=== PATIENT | female | born 1955 | race Caucasian/White ===

== ENCOUNTER → 2024-03-10 17:21 | Outpatient (CLI) | payer MEDICARE, OTHER, SELFPAY ==
[2024-03-10 18:04] LABS: Add Manual Diff / Slide Review NO; Basophils Absolute Auto 0 /uL (0-100); Basophils Percent Auto 0.3 % (0-2); Eosinophils Absolute Auto 0 /uL (0-450); Eosinophils Percent Auto 0.1 % (2-4); Hematocrit 42.6 % (36-46); Hemoglobin 14.5 g/dL (12.0-16.0); Lymphocytes Absolute Auto 2200 /uL (1100-4500); Lymphocytes Percent Auto 21.5 % (25-40); Mean Corpuscular HGB Conc 34.1 % (30-36); Mean Corpuscular Hemoglobin 29.1 PG (26-34); Mean Corpuscular Volume 85.3 fL (80-100); Monocytes Absolute Auto 200 /uL (0-900); Monocytes Percent Auto 1.6 % (3-14); Neutrophils Absolute Auto 7700 /uL (1500-7000); Neutrophils Percent Auto 76.5 % (50-75); Platelet Count 352 X10^3/uL (150-400); Red Blood Cell Count 4.99 X10^6/uL (4.0-5.2); Red Cell Distribution Width 15.2 % (11.6-14.8); White Blood Cell Count 10.1 X10^3/uL (4.5-11.0)
[2024-03-10 18:28] LABS: Alanine Aminotransferase 46 IU/L (<35); Albumin 4.8 g/dL (3.5-5.0); Albumin Globulin Ratio 1.6 (1.0-2.8); Alkaline Phosphatase 107 U/L (38-126); Aspartate Aminotransferase 33 IU/L (14-36); BUN Creatinine Ratio 26.2 (6-22); Bilirubin Total 0.9 mg/dL (0.2-1.3); Blood Urea Nitrogen 17 mg/dL (7-17); Calcium 11.4 mg/dL (8.4-10.2); Carbon Dioxide 27 mmol/L (22-32); Chloride 102 mmol/L (98-107); Estimated Glomerular Filt Rate > 60 mL/min (>60); Glucose 120 mg/dL (80-110); HEMOLYSIS < 15 (0-50); Potassium 4.2 mmol/L (3.4-5.1); Sodium 138 mmol/L (137-145); Total Protein 7.8 g/dL (6.3-8.2)
[2024-03-10 18:33] LABS: Rheumatoid Factor < 8.6 IU/mL (<12.0)
== END ==
PROVIDERS: Referring Provider Ophthalmology; Visit Provider Ophthalmology
DX: H30.23 Posterior cyclitis, bilateral (principal)
CPT/HCPCS: 36415; 80053; 81374; 82164; 85025; 85549; 86038; 86430; 86480; 86592

== ENCOUNTER → 2024-03-29 13:41 | Outpatient (CLI) | payer MEDICARE, OTHER, SELFPAY | PROVIDERS: PCP Family Medicine; Referring Provider Internal Medicine; Visit Provider Internal Medicine | DX: R91.1 Solitary pulmonary nodule (principal); F17.210 Nicotine dependence, cigarettes, uncomplicated; J98.4 Other disorders of lung | CPT/HCPCS: 94060; 94726; 94729 ==

== ENCOUNTER → 2024-04-01 12:48 | Outpatient (CLI) | payer MEDICARE, OTHER, SELFPAY ==
--- NOTE | 2024-04-01 12:49 | DI.MRI.S_ITS ---
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 After the administration of contrast, axial and coronal and sagittal T1 spin echo with fat saturation through the brain. COMPARISON: None. FINDINGS: Image quality: Excellent. CSF spaces: Basal cisterns are patent. No extra-axial fluid collections. Ventricles are normal in size and shape. Brain: Brain parenchymal volume loss can be seen. Numerous foci of T2 weighted hyperintensity can be seen within the periventricular deep white matter. A few peripheral white matter lesions are also seen. No involvement of the corpus callosum can be seen. Poorly defined wispy T2 hyperintense lesions can be seen within the central james. No midline shift. No intracranial bleeds or masses. No abnormal intracranial enhancement. The brainstem appears normal. Diffusion-weighted images demonstrate no acute infarct. No chronic ischemic insults. Normal intravascular flow voids are present. Symmetric calcification can be seen involving the basal ganglia, which is considered to be normal for age. Skull and face: In this patient with this given history, scrutiny is given to the orbits. To the limits of this standard protocol study, no findings of masses or abnormal enhancement can be seen with globes are within the orbits. Calvarial marrow is normal in signal. Sinuses: Sinuses and mastoids appear clear. IMPRESSION: No masses or abnormal enhancement can be seen involving the globes or the orbits. No masses or abnormal enhancement can be seen elsewhere. The brain findings are most compatible with age-appropriate brain parenchymal volume loss and chronic small vessel ischemic change. No findings of acute or subacute infarction can be seen. No prior territorial infarct can be seen. Dictated by: Patrice Saldana M.D. on 04/01/2024 at 13:55 Approved by: Patrice Saldana M.D. on 04/01/2024 at 13:58
== END ==
PROVIDERS: PCP Family Medicine; Referring Provider Internal Medicine; Visit Provider Internal Medicine
DX: C34.90 Malignant neoplasm of unspecified part of unspecified bronchus or lung (principal); R91.8 Other nonspecific abnormal finding of lung field; H20.9 Unspecified iridocyclitis
CPT/HCPCS: 70553; A9579

== ENCOUNTER → 2024-04-20 15:51 | Outpatient (CLI) | payer MEDICARE, OTHER, SELFPAY ==
[2024-04-20 16:53] LABS: Hemoglobin A1C% w Est Avg Glu 5.8 % (4.0-6.0)
[2024-04-20 17:08] LABS: BUN Creatinine Ratio 27.3 (6-22); Blood Urea Nitrogen 18 mg/dL (7-17); Calcium 10.1 mg/dL (8.4-10.2); Carbon Dioxide 31 mmol/L (22-32); Chloride 100 mmol/L (98-107); Estimated Glomerular Filt Rate > 60 mL/min (>60); Glucose 94 mg/dL (80-110); HEMOLYSIS 29 (0-50); Sodium 136 mmol/L (137-145)
[2024-04-20 17:14] LABS: Vitamin D 25 Hydroxy (D3) 31.7 ng/mL (30.0-100.0)
== END ==
PROVIDERS: PCP Family Medicine; Referring Provider Family Medicine; Visit Provider Family Medicine
DX: R73.9 Hyperglycemia, unspecified (principal); E83.52 Hypercalcemia; C34.90 Malignant neoplasm of unspecified part of unspecified bronchus or lung; H20.9 Unspecified iridocyclitis
CPT/HCPCS: 36415; 80048; 82306; 82330; 83036; 83883; 83970; 84155; 84165

== ENCOUNTER → 2024-06-17 12:32 | Outpatient (CLI) | payer MEDICARE, OTHER, SELFPAY ==
[2024-06-17 13:18] LABS: Hematocrit 40.6 % (36-46); Hemoglobin 13.7 g/dL (12.0-16.0); Mean Corpuscular HGB Conc 33.8 % (30-36); Mean Corpuscular Volume 85.7 fL (80-100); Platelet Count 321 X10^3/uL (150-400); Red Blood Cell Count 4.73 X10^6/uL (4.0-5.2); Red Cell Distribution Width 15.2 % (11.6-14.8); White Blood Cell Count 12.3 X10^3/uL (4.5-11.0)
[2024-06-17 13:34] LABS: Prothrombin Time 10.9 SECONDS (9.4-12.5)
== END ==
PROVIDERS: PCP Family Medicine; Referring Provider Internal Medicine; Visit Provider Internal Medicine
DX: D86.0 Sarcoidosis of lung (principal); R91.8 Other nonspecific abnormal finding of lung field
CPT/HCPCS: 36415; 85027; 85610

== ENCOUNTER → 2024-07-04 12:37 | Outpatient (CLI) | payer MEDICARE, OTHER, SELFPAY ==
[2024-07-04 14:07] LABS: Add Manual Diff / Slide Review NO; Basophils Absolute Auto 100 /uL (0-100); Basophils Percent Auto 0.5 % (0-2); Eosinophils Absolute Auto 100 /uL (0-450); Eosinophils Percent Auto 0.5 % (2-4); Hematocrit 40.8 % (36-46); Hemoglobin 13.6 g/dL (12.0-16.0); Lymphocytes Absolute Auto 2900 /uL (1100-4500); Lymphocytes Percent Auto 21.2 % (25-40); Mean Corpuscular HGB Conc 33.3 % (30-36); Mean Corpuscular Hemoglobin 28.5 PG (26-34); Mean Corpuscular Volume 85.5 fL (80-100); Monocytes Absolute Auto 900 /uL (0-900); Monocytes Percent Auto 6.8 % (3-14); Neutrophils Absolute Auto 9800 /uL (1500-7000); Platelet Count 297 X10^3/uL (150-400); Red Blood Cell Count 4.78 X10^6/uL (4.0-5.2); Red Cell Distribution Width 15.4 % (11.6-14.8); White Blood Cell Count 13.7 X10^3/uL (4.5-11.0)
[2024-07-04 14:48] LABS: INR 0.9 (0.9-1.3); Prothrombin Time 10.1 SECONDS (9.4-12.5)
== END ==
PROVIDERS: PCP Family Medicine; Referring Provider Internal Medicine; Visit Provider Internal Medicine
DX: Z01.818 Encounter for other preprocedural examination (principal); R91.8 Other nonspecific abnormal finding of lung field
CPT/HCPCS: 36415; 85025; 85610

== ENCOUNTER → 2024-07-28 17:28 | Outpatient (CLI) | payer MEDICARE, OTHER, SELFPAY ==
--- NOTE | 2024-07-28 17:30 | DI.RAD.S_ITS ---
PROCEDURE: XR CHEST 2V INDICATIONS: recent lung bx, ro pneumothorax TECHNIQUE: 2 views of the chest were acquired. COMPARISON: [facility], CR, XR CHEST 1 VIEW, 07/07/2024, 11:17. FINDINGS: Surgical changes and devices: None. Lungs and pleura: Radiodensity involving left apex is seen unchanged from prior study. No pleural effusions or pneumothorax. Mediastinum: Mediastinal contours are normal. Heart size is normal. Bones and chest wall: No suspicious bony abnormalities. Soft tissues appear unremarkable. IMPRESSION: Stable left upper lobe radiopacity. No pneumothorax post recent lung biopsy. Dictated by: Ricardo Rutledge M.D. on 07/28/2024 at 21:04 Approved by: Ricardo Rutledge M.D. on 07/28/2024 at 21:06
== END ==
PROVIDERS: PCP Family Medicine; Referring Provider Internal Medicine; Visit Provider Internal Medicine
DX: D86.0 Sarcoidosis of lung (principal); H20.9 Unspecified iridocyclitis; R91.8 Other nonspecific abnormal finding of lung field; C79.9 Secondary malignant neoplasm of unspecified site; R06.02 Shortness of breath
CPT/HCPCS: 71046

== ENCOUNTER → 2024-08-22 11:32 | Outpatient (CLI) | payer MEDICARE, OTHER, SELFPAY ==
--- NOTE | 2024-08-22 11:34 | DI.MG.S_ITS ---
BILATERAL DIGITAL SCREENING MAMMOGRAM 3D/2D WITH CAD: 08/22/2024 CLINICAL: Routine screening. No prior exams were available for comparison. There are scattered areas of fibroglandular density (category b / 25%-50% glandular tissue). Current study was also evaluated with a Computer Aided Detection (CAD) system. No significant masses, calcifications, or other findings are seen in either breast. IMPRESSION: NEGATIVE There is no mammographic evidence of malignancy. A 1 year screening mammogram is recommended. Based on the Tyrer Cuzick model (a risk assessment model) the patient's lifetime risk is 4.8% and her 10 year risk is 2.8%. According to the ACR, ACS, and NCCN guidelines, an annual breast MRI exam along with mammogram is recommended if the patient's lifetime risk is 20% or greater. This exam was interpreted at Station ID: [id number]. NOTE: For mammograms, a report in lay terms will be sent to the patient. Approximately 15% of breast malignancies will not be visualized mammographically. In the management of a palpable breast mass, a negative mammogram must not discourage biopsy of a clinically suspicious lesion. Electronically Signed By: Mello vargas/román:08/22/2024 18:39:37 letter sent: Normal Exam ACR BI-RADS Category 1: Negative
[2024-08-22 15:22] LABS: Hemoglobin A1C% w Est Avg Glu 5.8 % (4.0-6.0)
== END ==
PROVIDERS: PCP Family Medicine; Referring Provider Family Medicine; Visit Provider Family Medicine
DX: Z12.31 Encounter for screening mammogram for malignant neoplasm of breast (principal); R73.01 Impaired fasting glucose
CPT/HCPCS: 36415; 77063; 77067; 83036

== ENCOUNTER → 2024-09-06 11:42 | Outpatient (CLI) | payer MEDICARE, OTHER, SELFPAY ==
--- NOTE | 2024-09-06 11:45 | DI.CT.S_ITS ---
PROCEDURE: CT SOFT TISSUE NECK W CON INDICATIONS: Swelling in Neck TECHNIQUE: After the administration of intravenous contrast, 3.0 mm axial sections acquired from the sella to the aortic arch. Additional oblique axial 3.0 mm sections acquired through the pharynx. 3 mm thick coronal and sagittal reformats were generated. For radiation dose reduction, the following was used: automated exposure control. COMPARISON: [facility], RG, CT THORAX WITH CONTRAST, 03/04/2024, 17:46. [facility], MR, MR HEAD/BRAIN WO/W CON, 04/01/2024, 13:57. FINDINGS: Image quality: Excellent. Lymph nodes: No enlarged lymph nodes seen throughout the neck. Vessels: Visualized vasculature appears patent. Atherosclerotic vascular calcifications. Neck spaces: The oropharynx, nasopharynx, and pharynx demonstrate no mucosal lesions. The vocal cords, false vocal cords, pyriform sinuses, epiglottis, vallecula, and tongue base all appear normal. Extramucosal spaces appear unremarkable. Glands: The parotid and submandibular glands appear normal. Thyroid gland is heterogeneous and enlarged with multiple nodules, greater on the left. Miscellaneous: Lesion within the inferior right cerebellar hemisphere with enhancement measuring 1.1 centimeters (2/8).. Left upper lobe mass is increased in size measuring 4.6 x 2.6 centimeters, previously 2.9 x 3.1 centimeters, with spiculated margins. Additional right upper lobe nodule with adjacent ground-glass and consolidative opacity measuring 1.8 centimeters is mildly increased compared to prior. Left anterior mediastinal lymph node is partially visualized measuring 3.0 x 1.4 centimeters, previously 1.8 x 0.9 centimeters. Superficial soft tissues appear normal. Bones: No suspicious bony lesions. Multilevel degenerative changes of the spine. Visualized sinuses and mastoids appear unremarkable. IMPRESSION: 1. Left upper lobe mass is increased in size compared to prior measuring up 4.6 centimeters, previously 3.1 centimeters. Despite negative biopsy result, findings are suspicious for malignancy. 2. Right apical nodule is also mildly increased in size with adjacent ground-glass and consolidation. 3. No enlarged lymph nodes are seen within the neck. 4. Heterogeneous enlarged thyroid with multiple nodules, correlate with prior thyroid ultrasounds. Dictated by: Babar Farias M.D. on 09/06/2024 at 14:41 Approved by: Babar Farias M.D. on 09/06/2024 at 14:53
[2024-09-06 12:15] LABS: Estimated Glomerular Filt Rate > 60 mL/min (>60)
== END ==
LOC: CT 11:43
PROVIDERS: Radiology Diagnostic Radiology; PCP Family Medicine; Referring Provider Internal Medicine; Visit Provider Internal Medicine
DX: G93.9 Disorder of brain, unspecified (principal); R22.1 Localized swelling, mass and lump, neck; E04.2 Nontoxic multinodular goiter
CPT/HCPCS: 36415; 70491; 82565; Q9967

== ENCOUNTER 2025-02-05 18:43 | Emergency (ER) | payer MEDICARE, OTHER, SELFPAY ==
[2025-02-05] VITALS (12 sets, daily range): BP systolic 123–149; BP diastolic 58–74; PULSE 79–104; RESP 11–48; TEMP 36.6–36.8; O2SAT 92–99; BMI 29.2
--- NOTE | 2025-02-05 19:01 | DI.RAD.S_ITS ---
PROCEDURE: XR CHEST 1V INDICATIONS: Shortness of breath TECHNIQUE: One view of the chest was acquired. COMPARISON: [facility], CR, XR CHEST 2V, 07/28/2024, 17:32. FINDINGS: Surgical changes and devices: Left subclavian MediPort in place. Overlying monitoring wires. Lungs and pleura: Low lung volumes. Interval decrease in size of spiculated left apical and left mid lung density. No focal consolidation, effusion, or pneumothorax. Mediastinum: Mediastinal contours appear normal. Heart size is normal. Bones and chest wall: No suspicious bony lesions. Overlying soft tissues appear unremarkable. IMPRESSION: Hypoinflation. Decreasing left lung opacities. No acute cardiopulmonary disease. Dictated by: Tona Fisher M.D. on 02/05/2025 at 19:34 Approved by: Tona Fisher M.D. on 02/05/2025 at 19:36
--- NOTE | 2025-02-05 19:01 | EKG_ITS ---
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
[2025-02-05 19:15] LABS: Hematocrit 33.4 % (36-46); Hemoglobin 11.3 g/dL (12.0-16.0); Mean Corpuscular Hemoglobin 30.3 PG (26-34); Mean Corpuscular Volume 89.1 fL (80-100); Platelet Count 182 X10^3/uL (150-400); Red Blood Cell Count 3.74 X10^6/uL (4.0-5.2); Red Cell Distribution Width 18.7 % (11.6-14.8); White Blood Cell Count 16.1 X10^3/uL (4.5-11.0)
[2025-02-05 19:16] LABS: INR 1.3 (0.9-1.3); Prothrombin Time 14.8 SECONDS (9.4-12.5)
[2025-02-05 19:17] LABS: Add Manual Diff / Slide Review YES
[2025-02-05 19:19] LABS: Lactate (Lactic Acid) 1.9 mmol/L (0.7-2.1)
[2025-02-05 19:20] LABS: Alanine Aminotransferase 123 IU/L (<35); Albumin 4.1 g/dL (3.5-5.0); Albumin Globulin Ratio 1.6 (1.0-2.8); Alkaline Phosphatase 173 U/L (38-126); Aspartate Aminotransferase 59 IU/L (14-36); BUN Creatinine Ratio 26.8 (6-22); Bilirubin Total 1.1 mg/dL (0.2-1.3); Blood Urea Nitrogen 19 mg/dL (7-17); Calcium 10.1 mg/dL (8.4-10.2); Carbon Dioxide 24 mmol/L (22-32); Chloride 99 mmol/L (98-107); Estimated Glomerular Filt Rate > 60 mL/min (>60); Globulin 2.5 g/dL (1.7-4.1); Glucose 116 mg/dL (80-110); HEMOLYSIS < 15 (0-50); Potassium 3.2 mmol/L (3.4-5.1); Sodium 133 mmol/L (137-145); Total Protein 6.6 g/dL (6.3-8.2)
[2025-02-05 19:32] LABS: NT-proBNP (BNP-Adult 18+) 69 pg/mL (<125); Troponin I < 0.012 ng/mL (0.01-0.034)
[2025-02-05 19:36] LABS: Anisocytosis 1+; Neutrophils Absolute Manual 13846 /uL (3000-5900); Nucleated Red Blood Cells 1 #/Diff; Total Cells Counted 100
--- NOTE | 2025-02-05 20:56 | ED.SOB ---
HPI - SOB/Dyspnea General Chief Complaint: Shortness of Breath/Dyspnea Stated Complaint: SOB x1 day Time Seen by Provider: 02/05/25 20:56 Source: patient, EMS, RN notes reviewed and old records reviewed Mode of arrival: EMS Limitations: no limitations History of Present Illness HPI Narrative: 29-year-old female with a history of lung cancer on active chemo and radiation and right lung lobectomy, pulmonary embolism currently on Eliquis, hypertension on daily prednisone 2.5 mg who presents with complaint increasing shortness of breath particularly over the past 2 days. Patient states she does okay at rest but when she exerts herself she gets really short of breath we will take about 30 minutes to improve. Has been sort of progressive over the past day, she was yesterday she got really lightheaded while taking a shower she has not had any syncope. Today it has been more frequent she was started to get sort of lightheaded and tingling all over. She denies any chest pain with the symptoms. No fevers. She did have some palpitations where heart felt like it was beating strongly. She denies any cough. No hemoptysis. No new swelling of extremities. She was had some nausea but notes she recently had chemotherapy on Thursday for her 4th round and a shot on Thursday no vomiting. She is got some mild constipation but relates that to her antiemetics. No new urinary symptoms. She does note that her Eliquis was stopped in November because she has a head injury had a small bleed and restarted it 2 weeks ago. She was otherwise been taking her medications regularly. She does not use inhalers states she had reaction to albuterol when she was at [facility] she was not sure exactly what she was given but they called what sounds like a rapid response. She received Versed and Solu-Medrol with EMS which she found very helpful. Has a reported allergy to sulfa. Former tobacco use, no alcohol no recreational drugs. Phyllis is her oncologist at [facility]. Dr. Steiner is her primary care physician. Related Data Home Medications Medication Instructions Recorded Confirmed acetaminophen 500 mg tablet 500 mg PO Q6H PRN 03/16/24 10/25/24 (Tylenol Extra Strength) cholecalciferol (vitamin D3) 25 25 mcg PO DAILY 03/16/24 10/25/24 mcg (1,000 unit) capsule multivitamin 1 tab PO DAILY 03/16/24 10/25/24 vit C 90 mg-D3 3.15 mcg-E 3.35 tab PO 03/16/24 10/25/24 [id number] 65 mg chew tablet (Airborne Vits Zinc Elderberry) prednisolone acetate 1 % eye 1 drp EYE-RIGHT QID 10/25/24 10/25/24 drops,suspension prednisone 10 mg tablet 20 mg PO DAILY 10/25/24 10/25/24 Previous Rx's Medication Instructions Recorded ondansetron 4 mg disintegrating 4 mg translingual Q6H PRN nausea 07/28/24 tablet and vomiting #90 tabs alprazolam 0.25 mg tablet (Xanax) 0.125 mg (1/2 x 0.25 mg) PO 10/25/24 BEDTIME PRN sleep #30 tabs amlodipine 5 mg tablet 5 mg PO DAILY #90 tabs 10/25/24 apixaban 5 mg tablet (Eliquis) 5 mg PO BID Blood clots in lungs 10/25/24 #60 tabs alprazolam 0.25 mg tablet (Xanax) 0.125 mg (1/2 x 0.25 mg) PO BID 02/05/25 PRN anxiety #10 tabs Allergies Allergy/AdvReac Type Severity Reaction Status Date / Time albuterol Allergy Severe Difficulty Verified 02/05/25 18:44 Breathing Sulfa (Sulfonamide AdvReac Rash Verified 02/05/25 18:44 Antibiotics) Review of Systems Review of Systems ROS Unobtainable: All systems reviewed & are unremarkable except as noted in HPI and below Patient History Medical History Pulmonary embolism Localized swelling, mass and lump, neck IFG (impaired fasting glucose) Cataracts, bilateral (~2018) Fibroids (~2008) Thyroid nodule (~2022) Hyperparathyroidism Surgical History Anesthesia S/P thyroid biopsy (~2021) History of left knee surgery (~2018) History of colonoscopy (~2013) History of lobectomy of lung (~2010) History of right knee surgery (~2005) History of carpal tunnel release (~2000) Family History Father Parkinson's disease Mother Parkinson's disease Osteoporosis Uterine cancer Grandfather Cancer Grandmother History of heart disease Grandfather History of heart disease Grandmother History of heart disease Social History Smoking Status: Former smoker Smoking Status: Former smoker Exam Narrative Exam Narrative: GENERAL: Alert and oriented x three, female in moderate distress. Patient had just walked to the bathroom and back. No diaphoresis. HEENT: Head normocephalic, atraumatic, EOMI, pupils reactive, face symmetric, moist mucous membranes NECK: Supple, full range of motion CARDIOVASCULAR: Regular rate and rhythm without murmurs, rubs or gallops. RESPIRATORY: Breath sounds equal bilaterally, no wheezes rales or rhonchi. Patient has tachypnea, no accessory muscle use speaks in 4-5 words. No stridor. ABDOMEN: Soft, nontender. Normoactive bowel sounds all 4 quadrants. No guarding or rebound, rigidity, no mass : No CVA tenderness EXTREMITIES: Normal range of motion, no clubbing or edema. Neurovascularly intact NEUROLOGICAL: Cranial nerves II through XII grossly intact. Moving all extremities SKIN: Warm, dry, no petechiae, no rashes or lesions. Initial Vital Signs Initial Vital Signs: Vital Signs Temperature 98.2 F 02/05/25 18:44 Pulse Rate 82 02/05/25 18:44 Respiratory Rate 16 02/05/25 18:44 Blood Pressure 135/66 02/05/25 18:44 Pulse Oximetry 92 02/05/25 18:44 Oxygen Delivery Method Room Air 02/05/25 18:44 Course Orders Ordered: ED Orders 02/05/25 21:34 EKG-12 Lead Stat 02/05/25 21:40 Trop I [Troponin I] Stat Discontinued Medications Lorazepam (Lorazepam 2 Mg/Ml Inj) 0.5 mg IV NOW ONE Stop: 02/05/25 21:19 Last Admin: 02/05/25 21:44 Dose: 0.5 mg Documented By: DONNELL Potassium Chloride (Potassium Chloride 20 Meq Tab) 40 meq PO NOW ONE Stop: 02/05/25 21:00 Last Admin: 02/05/25 21:11 Dose: 40 meq Documented By: DALLIN Vital Signs Vital signs: Vital Signs - 8 hr 02/05/25 22:30 02/05/25 22:43 02/05/25 23:00 Temperature Pulse Rate 86 104 H 84 Respiratory Rate 19 26 H 14 Blood Pressure Pulse Oximetry 94 93 Oxygen Delivery Method 02/05/25 23:23 Temperature 97.9 F Pulse Rate 88 Respiratory Rate 20 Blood Pressure 149/73 H Pulse Oximetry 94 Oxygen Delivery Method Room Air MDM - SOB/Dyspnea Lab Data 02/05/25 18:43 02/05/25 18:43 Labs: Lab Results 02/05/25 02/05/25 Range/Units 18:43 21:40 WBC 16.1 H (4.5-11.0) X10^3/uL RBC 3.74 L (4.0-5.2) X10^6/uL Hgb 11.3 L (12.0-16.0) g/dL Hct 33.4 L (36-46) % MCV 89.1 (80-100) fL MCH 30.3 (26-34) PG MCHC 34.0 (30-36) % RDW 18.7 H (11.6-14.8) % Plt Count 182 (150-400) X10^3/uL Neut % (Auto) Not Reportable Lymph % (Auto) Not Reportable [place] % (Auto) Not Reportable Eos % (Auto) Not Reportable Baso % (Auto) Not Reportable Lymph # (Auto) Not Reportable [place] # (Auto) Not Reportable Baso # (Auto) Not Reportable Total Counted 100 Seg Neutrophils % 86.0 H (38-70) % Lymphocytes % (Manual) 9.0 L (25-45) % Monocytes % (Manual) 2.0 (2-11) % Eosinophils % (Manual) 3.0 (2-4) % Neutrophils # (Manual) 24658 H (2377-0753) /uL Nucleated RBCs 1 H ( - 0) #/Diff RBC Morphology See below Anisocytosis 1+ H PT 14.8 H (9.4-12.5) SECONDS INR 1.3 (0.9-1.3) Sodium 133 L (137-145) mmol/L Potassium 3.2 L (3.4-5.1) mmol/L Chloride 99 (98-107) mmol/L Carbon Dioxide 24 (22-32) mmol/L BUN 19 H (7-17) mg/dL Creatinine 0.71 (0.52-1.04) mg/dL Estimated GFR > 60 (>60) mL/min BUN/Creatinine Ratio 26.8 H (6-22) Glucose 116 H (80-110) mg/dL Lactate 1.9 (0.7-2.1) mmol/L Calcium 10.1 (8.4-10.2) mg/dL Total Bilirubin 1.1 (0.2-1.3) mg/dL AST 59 H (14-36) IU/L ALT 123 H (<35) IU/L Alkaline Phosphatase 173 H (38-126) U/L Troponin I < 0.012 < 0.012 (0.01-0.034) ng/mL NT-Pro-B Natriuret Pep 69 (<125) pg/mL Total Protein 6.6 (6.3-8.2) g/dL Albumin 4.1 (3.5-5.0) g/dL Globulin 2.5 (1.7-4.1) g/dL Albumin/Globulin Ratio 1.6 (1.0-2.8) ECG Data Attestation: I personally reviewed and interpreted this ECG as follows: Prior ECG tracings: not available for review Interpretation: Sinus rhythm rate 82 [place] 122 QRS of 134 QTC of 450, sinus rhythm right bundle-branch block. No priors for comparison. EKG 2. Shows sinus rhythm right bundle-branch block rate of 90, IL 124 QRS of 126 QTC of 467 no dynamic changes appreciated. [facility] Narrative Medical decision making narrative: Labs show white count of 16.1 was a little elevated in June of 2024 hemoglobin is 11.3 today was 13 range in June, platelets are 182. Patient has predominance of neutrophils. INR is 1.3 sodium is 133 potassium 3.2, BUN 19 with a normal creatinine and glucose of 116 bilirubin is normal AST ALT are slightly elevated at 59 and 123 with a alk-phos of 173 troponins less than 0.012 with a BNP of 69. Repeat troponins less than 0.012. EKG shows sinus rhythm with right bundle-branch block no priors for comparison. Chest x-ray shows hypoinflation decreasing left lung opacities no acute cardiopulmonary disease CTA chest shows no acute pulmonary embolism, previously seen right upper lobe pulmonary embolus has resolved no evidence of acute right-sided heart strain. Stable to decreased size and conspicuity of multiple bilateral irregular spiculated pulmonary nodules and masses no new suspicious or enlarging nodules identified. Patient received 2 mg Versed and 125 mg of Solu-Medrol with EMS, report is that patient did not have DuoNeb but did seem to respond well to Versed. Here in the department patient was seen briefly none it was not tachypneic but after walking back from the bathroom is tachypneic rate in the 40s otherwise heart rate blood pressure and O2 are normal she was afebrile. She does note she has been off of her Eliquis until about 2 weeks ago and has a history of pulmonary embolism so CT angio is felt appropriate to rule out PE versus other structural changes from her known lung cancer, CT imaging does not show any PE does show some changes to the lungs but actually improved from prior. Patient does not appear to be in heart failure, repeat troponins are negative. She was not had any chest pain with her symptoms. Patient received potassium and lorazepam. Ambulatory pulse ox 93-94% patient is not nearly as tachypneic on re-evaluation after the medication and ambulation. She feels comfortable returning home. She does have some Xanax at home that she was taken for sleep we will give her short course of some additional tablets as she states she does not have very many of these. We did discuss having her follow-up she has a Oncology, pulmonology and primary care I think any of these would be a good choice to follow up for repeat evaluation particularly if she was having persistent symptoms or they are worsening. We did discuss cardiac sources on the differential on that she may benefit from cardiac workup. Patient's family expressed their understanding. 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 Your workup today did not show any new accumulation of pulmonary emboli, you have not had any worsening of the structural changes in your lungs your cardiac workup was negative but talk with your physician they may wish to do some additional testing. A prescription for some additional Xanax was sent to your [facility] in [place]. Take it the same as you normally do at home. Please return if you are having new or worsening symptoms, fevers, chest pain, increasing shortness of breath, shortness of breath that does not improve, coughing up blood, lightheadedness or passing out, diaphoresis or sweatiness, vomiting or other new or concerning changes. Prescriptions: New alprazolam [Xanax] 0.25 mg tablet 0.125 mg PO BID PRN (Reason: anxiety) Qty: 10 0RF No Action Eliquis 5 mg tablet 5 mg PO BID Qty: 60 11RF alprazolam [Xanax] 0.25 mg tablet 0.125 mg PO BEDTIME PRN (Reason: sleep) Qty: 30 2RF amlodipine 5 mg tablet 5 mg PO DAILY Qty: 90 3RF prednisone 10 mg tablet 20 mg PO DAILY Rx Instructions: until complete prednisolone acetate 1 % drops,suspension 1 drp EYE-RIGHT QID multivitamin Tablet 1 tab PO DAILY cholecalciferol (vitamin D3) 25 mcg (1,000 unit) capsule 25 mcg PO DAILY Airborne Vits Zinc Elderberry 90 mg-3.15 mcg- 3.35 mg-1 mg tablet,chewable PO acetaminophen [Tylenol Extra Strength] 500 mg tablet 500 mg PO Q6H PRN ondansetron 4 mg tablet,disintegrating 4 mg translingual Q6H PRN (Reason: nausea and vomiting) Qty: 90 0RF Referrals: Kayla Steiner DO [Primary Care Provider] - Stand Alone Forms: Patient Portal/API/Survey
--- NOTE | 2025-02-05 21:06 | PC.NURSE ---
Pt became dyspneic after ambulating to BR. States this started happening yesterday, worse today. States it takes 30 mins to recover from short exertion. Lungs CTA. Dr Newton now at bedside.
[2025-02-05] MEDS: POTASSIUM CHLORIDE 20 MEQ TAB 40 MEQ PO (21:11)
--- NOTE | 2025-02-05 21:18 | DI.CT.S_ITS ---
PROCEDURE: CT ANGIO CHEST PE PROTOCOL INDICATIONS: SOB, off anticoagulants until 2 weeks ago, hx PE, lung ca TECHNIQUE: After the administration of intravenous contrast, 2 mm thick sections acquired from the pulmonary apices to the posterior costophrenic angles. 3-dimensional maximum intensity projection (MIP) coronal and sagittal reformats were then acquired through the thorax. For radiation dose reduction, the following was used: automated exposure control, adjustment of mA and/or kV according to patient size. COMPARISON: [facility], CT, CT ANGIO CHEST PE, 10/13/2024, 16:19. [facility], CR, XR CHEST 1V, 02/05/2025, 18:56. FINDINGS: Image quality: Diagnostic. Pulmonary arteries: Pulmonary arteries are normal in size, and demonstrate no intraluminal filling defects to suggest central pulmonary embolism. Previously seen right upper lobe pulmonary emboli have resolved. Lower Neck: No enlarged lymph nodes. Thyroid: No new thyroid nodules which require sonographic follow up, per consensus guidelines. Axillae: No enlarged lymph nodes. Chest Wall: Unremarkable. Bones: No acute vertebral body compression fractures. Multilevel spondylitic changes throughout the imaged spine. No suspicious osseous lesions. Lungs and Pleura: No pneumothorax or pleural effusions. Redemonstration of multiple bilateral irregular, spiculated nodules and masses. Largest lesion is noted in the left upper lobe as before. Overall, this is slightly smaller in size. Adjacent small irregular ground-glass nodule not significantly changed. No new suspicious or enlarging pulmonary nodules or masses identified. No septal thickening or nodularity. Visualized airways appear clear. Heart: Heart size is normal. No pericardial effusion. Thoracic Vessels: No aortic aneurysm. Mediastinum and [place]: No enlarged lymph nodes. Esophagus: No wall thickening. Small hiatal hernia. Upper Abdomen: Visualized upper abdomen solid organs and bowel loops appear normal. IMPRESSION: No acute pulmonary emboli. Previously seen right upper lobe pulmonary emboli has resolved. No evidence for acute right-sided heart strain. Stable to decreased size and conspicuity of multiple bilateral irregular, spiculated pulmonary nodules and masses. No new suspicious or enlarging nodules identified. Other chronic findings as above. Dictated by: Mello Suero M.D. on 02/05/2025 at 22:02 Approved by: Mello Suero M.D. on 02/05/2025 at 22:10
[2025-02-05] MEDS: LORazepam 2 MG/ML INJ 0.5 MG IV (21:44)
--- NOTE | 2025-02-05 22:02 | EKG_ITS ---
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
[2025-02-05 22:07] LABS: Troponin I < 0.012 ng/mL (0.01-0.034)
== END 2025-02-05 23:26 | disposition home or self-care (01) ==
PROVIDERS: Emergency Provider Emergency Medicine; PCP Family Medicine
DX: R06.00 Dyspnea, unspecified (principal); C34.90 Malignant neoplasm of unspecified part of unspecified bronchus or lung
CPT/HCPCS: 71045; 71275; 80053; 83605; 83880; 84484; 85007; 85025; 85610; 93005; 93010; 96374; 99284; J2060; Q9967

== ENCOUNTER → 2025-02-16 12:58 | Outpatient (CLI) | payer MEDICARE, OTHER, SELFPAY | PROVIDERS: PCP Family Medicine; Referring Provider Internal Medicine; Visit Provider Internal Medicine | DX: R06.02 Shortness of breath (principal); Z87.891 Personal history of nicotine dependence; R94.2 Abnormal results of pulmonary function studies; I26.99 Other pulmonary embolism without acute cor pulmonale | CPT/HCPCS: 94010; 94726; 94729 ==

== ENCOUNTER 2025-03-23 14:37 | Emergency (ER) | payer MEDICARE, OTHER, SELFPAY ==
[2025-03-23] VITALS (14 sets, daily range): BP systolic 121–162; BP diastolic 58–73; PULSE 89–109; RESP 12–60; TEMP 36.8; O2SAT 90–99; BMI 29.2
--- NOTE | 2025-03-23 14:40 | DI.RAD.S_ITS ---
PROCEDURE: XR CHEST 1V INDICATIONS: Shortness of breath TECHNIQUE: One view of the chest was acquired. COMPARISON: [facility], CR, XR CHEST 1V, 02/05/2025, 18:56. [facility], CR, XR CHEST 2V, 07/28/2024, 17:32. FINDINGS: Surgical changes and devices: Left chest wall Port-A-Cath. Lungs and pleura: Lungs are clear. No pleural effusions or pneumothorax. Mediastinum: Mediastinal contours appear normal. Heart size is normal. Bones and chest wall: No suspicious bony lesions. Overlying soft tissues appear unremarkable. IMPRESSION: No acute cardiopulmonary abnormality is seen. Dictated by: Babar Farias M.D. on 03/23/2025 at 15:59 Approved by: Babar Farias M.D. on 03/23/2025 at 15:59
--- NOTE | 2025-03-23 14:40 | EKG_ITS ---
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
--- NOTE | 2025-03-23 15:04 | ED_ITS ---
HPI - SOB/Dyspnea <Arash Mooney MD - Last Filed: 03/28/25 08:25> General Chief Complaint: Shortness of Breath/Dyspnea Stated Complaint: SOB Time Seen by Provider: 03/23/25 14:39 Source: patient and EMS Mode of arrival: EMS Limitations: no limitations History of Present Illness HPI Narrative: Patient brought here by ambulance from home for complaints of shortness of breath. Denies any chest pain. Patient states symptoms started about 9:00 a.m. this morning. Patient seen here in January for shortness of breath as well. Please see notes below. Denies any cough cold or congestion. She was started on Xanax by her primary care. After a visit in January here, her appellate court judge did make medication changes for her home meds and thought it was inflammatory process, she was tapered from 60 mg prednisone daily and currently now at 15 mg daily. Patient appears very anxious. Is tachypneic. However able to speak full sentences when speaking with me. Patient states the albuterol they tried giving her last visit made things worse and does not want it. HPI - SOB/Dyspnea General Chief Complaint: Shortness of Breath/Dyspnea Stated Complaint: SOB x1 day Time Seen by Provider: 02/05/25 20:56 Source: patient, EMS, RN notes reviewed and old records reviewed Mode of arrival: EMS Limitations: no limitations History of Present Illness HPI Narrative: 29-year-old female with a history of lung cancer on active chemo and radiation and right lung lobectomy, pulmonary embolism currently on Eliquis, hypertension on daily prednisone 2.5 mg who presents with complaint increasing shortness of breath particularly over the past 2 days. Patient states she does okay at rest but when she exerts herself she gets really short of breath we will take about 30 minutes to improve. Has been sort of progressive over the past day, she was yesterday she got really lightheaded while taking a shower she has not had any syncope. Today it has been more frequent she was started to get sort of lightheaded and tingling all over. She denies any chest pain with the symptoms. No fevers. She did have some palpitations where heart felt like it was beating strongly. She denies any cough. No hemoptysis. No new swelling of extremities. She was had some nausea but notes she recently had chemotherapy on Thursday for her 4th round and a shot on Thursday no vomiting. She is got some mild constipation but relates that to her antiemetics. No new urinary symptoms. She does note that her Eliquis was stopped in November because she has a head injury had a small bleed and restarted it 2 weeks ago. She was otherwise been taking her medications regularly. She does not use inhalers states she had reaction to albuterol when she was at [facility] she was not sure exactly what she was given but they called what sounds like a rapid response. She received Versed and Solu-Medrol with EMS which she found very helpful. Has a reported allergy to sulfa. Former tobacco use, no alcohol no recreational drugs. Phyllis is her oncologist at [facility]. Dr. Steiner is her primary care physician. EKG shows sinus rhythm with right bundle-branch block no priors for comparison. Chest x-ray shows hypoinflation decreasing left lung opacities no acute cardiopulmonary disease CTA chest shows no acute pulmonary embolism, previously seen right upper lobe pulmonary embolus has resolved no evidence of acute right-sided heart strain. Stable to decreased size and conspicuity of multiple bilateral irregular spiculated pulmonary nodules and masses no new suspicious or enlarging nodules identified. Patient received 2 mg Versed and 125 mg of Solu-Medrol with EMS, report is that patient did not have DuoNeb but did seem to respond well to Versed. Here in the department patient was seen briefly none it was not tachypneic but after walking back from the bathroom is tachypneic rate in the 40s otherwise heart rate blood pressure and O2 are normal she was afebrile. She does note she has been off of her Eliquis until about 2 weeks ago and has a history of pulmonary embolism so CT angio is felt appropriate to rule out PE versus other structural changes from her known lung cancer, CT imaging does not show any PE does show some changes to the lungs but actually improved from prior. Patient does not appear to be in heart failure, repeat troponins are negative. She was not had any chest pain with her symptoms. Patient received potassium and lorazepam. Ambulatory pulse ox 93-94% patient is not nearly as tachypneic on re-evaluation after the medication and ambulation. She feels comfortable returning home. She does have some Xanax at home that she was taken for sleep we will give her short course of some additional tablets as she states she does not have very many of these. We did discuss having her follow-up she has a Oncology, pulmonology and primary care I think any of these would be a good choice to follow up for repeat evaluation particularly if she was having persistent symptoms or they are worsening. We did discuss cardiac sources on the differential on that she may benefit from cardiac workup. Patient's family expressed their understanding. Related Data Home Medications Medication Instructions Recorded Confirmed acetaminophen 500 mg tablet 500 mg PO Q6H PRN 03/16/24 03/07/25 (Tylenol Extra Strength) cholecalciferol (vitamin D3) 25 25 mcg PO DAILY 03/16/24 03/07/25 mcg (1,000 unit) capsule multivitamin 1 tab PO DAILY 03/16/24 03/07/25 vit C 90 mg-D3 3.15 mcg-E 3.35 tab PO 03/16/24 03/07/25 [id number] 65 mg chew tablet (Airborne Vits Zinc Elderberry) prednisolone acetate 1 % eye 1 drp EYE-RIGHT QID 10/25/24 03/07/25 drops,suspension apixaban 2.5 mg tablet (Eliquis) 2.5 mg PO BID 03/07/25 03/07/25 folic acid 1 mg tablet 1 mg PO DAILY 03/07/25 03/07/25 Previous Rx's Medication Instructions Recorded ondansetron 4 mg disintegrating 4 mg translingual Q6H PRN nausea 07/28/24 tablet and vomiting #90 tabs amlodipine 5 mg tablet 5 mg PO DAILY #90 tabs 10/25/24 alprazolam 0.25 mg tablet (Xanax) 0.125 mg (1/2 x 0.25 mg) PO BID 02/05/25 PRN anxiety #10 tabs prednisone 10 mg tablet See Rx Instructions PO DAILY #207 02/09/25 tabs Disabled Parking Permit 1 ea Not Applicable DAILY #1 ea 03/07/25 hydroxyzine HCl 50 mg tablet 50 mg PO TID PRN anxiety #20 tabs 03/23/25 Allergies Allergy/AdvReac Type Severity Reaction Status Date / Time albuterol Allergy Severe Difficulty Verified 03/23/25 14:56 Breathing Sulfa (Sulfonamide AdvReac Rash Verified 03/23/25 14:56 Antibiotics) Patient History <Arash Mooney MD - Last Filed: 03/28/25 08:25> Medical History Pulmonary embolism Localized swelling, mass and lump, neck IFG (impaired fasting glucose) Cataracts, bilateral (~2018) Fibroids (~2008) Thyroid nodule (~2022) Hyperparathyroidism Surgical History Anesthesia S/P thyroid biopsy (~2021) History of left knee surgery (~2018) History of colonoscopy (~2013) History of lobectomy of lung (~2010) History of right knee surgery (~2005) History of carpal tunnel release (~2000) Family History Father Parkinson's disease Mother Parkinson's disease Osteoporosis Uterine cancer Grandfather Cancer Grandmother History of heart disease Grandfather History of heart disease Grandmother History of heart disease Exam <Arash Mooney MD - Last Filed: 03/28/25 08:25> Initial Vital Signs Initial Vital Signs: Vital Signs Temperature 98.2 F 03/23/25 14:57 Pulse Rate 107 H 03/23/25 14:57 Respiratory Rate 60 H 03/23/25 14:57 Blood Pressure 162/73 H 03/23/25 14:57 Pulse Oximetry 99 03/23/25 14:57 Oxygen Delivery Method Room Air 03/23/25 14:57 <Destin Love MD - Last Filed: 03/24/25 01:48> Initial Vital Signs Initial Vital Signs: Vital Signs Temperature 98.2 F 03/23/25 14:57 Pulse Rate 107 H 03/23/25 14:57 Respiratory Rate 60 H 03/23/25 14:57 Blood Pressure 162/73 H 03/23/25 14:57 Pulse Oximetry 99 03/23/25 14:57 Oxygen Delivery Method Room Air 03/23/25 14:57 Course <Arash Mooney MD - Last Filed: 03/28/25 08:25> Orders Ordered: Discontinued Medications Diazepam (Diazepam 10 Mg/2 Ml Syringe) 2.5 mg IV NOW ONE Stop: 03/23/25 15:09 Last Admin: 03/23/25 15:18 Dose: 2.5 mg Documented By: JYOTI Diazepam (Diazepam 10 Mg/2 Ml Syringe) 2.5 mg IV NOW ONE Stop: 03/23/25 18:36 Last Admin: 03/23/25 18:41 Dose: 2.5 mg Documented By: JYOTI Hydroxyzine HCl (Hydroxyzine Hcl 25 Mg Tablet) 50 mg PO NOW ONE Stop: 03/23/25 21:30 Last Admin: 03/23/25 21:40 Dose: 50 mg Documented By: KARO Lorazepam (Lorazepam 2 Mg/Ml Inj) 1 mg IV NOW ONE Stop: 03/23/25 15:05 Last Admin: 03/23/25 15:16 Dose: Not Given Documented By: JYOTI Vital Signs Vital signs: Vital Signs - 8 hr 03/23/25 18:00 03/23/25 18:00 03/23/25 18:30 Pulse Rate 90 109 H Respiratory Rate 17 41 H Blood Pressure 146/67 H Pulse Oximetry 93 98 03/23/25 19:00 03/23/25 19:00 03/23/25 19:30 Pulse Rate 93 H 91 H Respiratory Rate 36 H 35 H Blood Pressure 132/60 143/63 H Pulse Oximetry 98 98 03/23/25 20:00 03/23/25 20:37 03/23/25 21:00 Pulse Rate 89 97 H 96 H Respiratory Rate 26 H 36 H 26 H Blood Pressure 146/64 H Pulse Oximetry 97 96 90 L 03/23/25 21:30 03/23/25 21:30 Pulse Rate 106 H Respiratory Rate 25 H Blood Pressure 155/72 H Pulse Oximetry 94 <Destin Love MD - Last Filed: 03/24/25 01:48> Orders Ordered: Discontinued Medications Diazepam (Diazepam 10 Mg/2 Ml Syringe) 2.5 mg IV NOW ONE Stop: 03/23/25 15:09 Last Admin: 03/23/25 15:18 Dose: 2.5 mg Documented By: JYOTI Diazepam (Diazepam 10 Mg/2 Ml Syringe) 2.5 mg IV NOW ONE Stop: 03/23/25 18:36 Last Admin: 03/23/25 18:41 Dose: 2.5 mg Documented By: JYOTI Hydroxyzine HCl (Hydroxyzine Hcl 25 Mg Tablet) 50 mg PO NOW ONE Stop: 03/23/25 21:30 Last Admin: 03/23/25 21:40 Dose: 50 mg Documented By: KARO Lorazepam (Lorazepam 2 Mg/Ml Inj) 1 mg IV NOW ONE Stop: 03/23/25 15:05 Last Admin: 03/23/25 15:16 Dose: Not Given Documented By: JYOTI Vital Signs Vital signs: Vital Signs - 8 hr 03/23/25 18:00 03/23/25 18:00 03/23/25 18:30 Pulse Rate 90 109 H Respiratory Rate 17 41 H Blood Pressure 146/67 H Pulse Oximetry 93 98 03/23/25 19:00 03/23/25 19:00 03/23/25 19:30 Pulse Rate 93 H 91 H Respiratory Rate 36 H 35 H Blood Pressure 132/60 143/63 H Pulse Oximetry 98 98 03/23/25 20:00 03/23/25 20:37 03/23/25 21:00 Pulse Rate 89 97 H 96 H Respiratory Rate 26 H 36 H 26 H Blood Pressure 146/64 H Pulse Oximetry 97 96 90 L 03/23/25 21:30 03/23/25 21:30 Pulse Rate 106 H Respiratory Rate 25 H Blood Pressure 155/72 H Pulse Oximetry 94 MDM - SOB/Dyspnea <Arash Mooney MD - Last Filed: 03/28/25 08:25> Lab Data 03/23/25 14:50 03/23/25 14:50 Labs: Lab Results 03/23/25 03/23/25 Range/Units 14:50 17:23 WBC 4.1 L (4.5-11.0) X10^3/uL RBC 3.81 L (4.0-5.2) X10^6/uL Hgb 12.4 (12.0-16.0) g/dL Hct 36.0 (36-46) % MCV 94.4 (80-100) fL MCH 32.4 (26-34) PG MCHC 34.3 (30-36) % RDW 18.0 H (11.6-14.8) % Plt Count 160 (150-400) X10^3/uL Neut % (Auto) 73.6 (50-75) % Lymph % (Auto) 16.1 L (25-40) % Cassia % (Auto) 10.0 (3-14) % Eos % (Auto) 0.1 L (2-4) % Baso % (Auto) 0.2 (0-2) % Neut # (Auto) 3000 (8426-0437) /uL Lymph # (Auto) 700 L (0880-4892) /uL Cassia # (Auto) 400 (0-900) /uL Eos # (Auto) 0 (0-450) /uL Baso # (Auto) 0 (0-100) /uL PT 16.7 H (9.4-12.5) SECONDS INR 1.5 H (0.9-1.3) Sodium 133 L (137-145) mmol/L Potassium 4.2 (3.4-5.1) mmol/L Chloride 100 (98-107) mmol/L Carbon Dioxide 24 (22-32) mmol/L BUN 13 (7-17) mg/dL Creatinine 0.92 (0.52-1.04) mg/dL Estimated GFR > 60 (>60) mL/min BUN/Creatinine Ratio 14.1 (6-22) Glucose 109 H (70-99) mg/dL Lactate 2.7 H 1.2 (0.7-2.1) mmol/L Calcium 11.5 H (8.4-10.2) mg/dL Total Bilirubin 1.2 (0.2-1.3) mg/dL AST 107 H (14-36) IU/L ALT 154 H (<35) IU/L Alkaline Phosphatase 80 (38-126) U/L Troponin I 0.016 0.015 (0.01-0.034) ng/mL NT-Pro-B Natriuret Pep 170 H (<125) pg/mL Total Protein 7.9 (6.3-8.2) g/dL Albumin 4.6 (3.5-5.0) g/dL Globulin 3.3 (1.7-4.1) g/dL Albumin/Globulin Ratio 1.4 (1.0-2.8) Imaging Data Chest x-ray: Radiologist's Impression: [address] [address] XRay Report Signed Patient: Gayatri Fabian MR#: [id number] : 1955 Acct:[id number] Age/Sex: 69 / F Date of Service: 03/23/25 Loc: ED Accession Number: [id number] Procedure: XR chest 1V Ordering Provider: Arash Mooney MD PROCEDURE: XR CHEST 1V INDICATIONS: Shortness of breath TECHNIQUE: One view of the chest was acquired. COMPARISON: [facility], CR, XR CHEST 1V, 02/05/2025, 18:56. [facility], CR, XR CHEST 2V, 07/28/2024, 17:32. FINDINGS: Surgical changes and devices: Left chest wall Port-A-Cath. Lungs and pleura: Lungs are clear. No pleural effusions or pneumothorax. Mediastinum: Mediastinal contours appear normal. Heart size is normal. Bones and chest wall: No suspicious bony lesions. Overlying soft tissues appear unremarkable. IMPRESSION: No acute cardiopulmonary abnormality is seen. Dictated by: Babar Farias M.D. on 03/23/2025 at 15:59 Approved by: Babar Farias M.D. on 03/23/2025 at 15:59 [facility] Narrative Medical decision making narrative: Patient brought here by ambulance from home for complaints of shortness of breath. Denies any chest pain. Patient states symptoms started about 9:00 a.m. this morning. Patient seen here in January for shortness of breath as well. Please see notes below. Denies any cough cold or congestion. She was started on Xanax by her primary care. After a visit in January here, her appellate court judge did make medication changes for her home meds and thought it was inflammatory process, she was tapered from 60 mg prednisone daily and currently now at 15 mg daily. Patient appears very anxious. Is tachypneic. However able to speak full sentences when speaking with me. Patient states the albuterol they tried giving her last visit made things worse and does not want it. Patient states do does not feel significantly anxious, she is worried though about her cancer and treatment. It does weigh pretty heavily on her mind. After history and exam, CBC CMP BNP troponin EKG chest x-ray, no breathing treatments indicated this time. This does not appear to be pulmonary source at this time. Even though patient is tachypneic and short of breath, I will order Valium 2.5 mg as we are out of Ativan. [facility] Medical records reviewed: Differential considered: Includes but not limited to Lab Test results independently reviewed as above. Pertinent findings: WBC 4.1 hemoglobin 12.4 INR 1.5 sodium 133 potassium 4.2 BUN 13 creatinine 0.92 glucose 109 1st troponin 0.016 repeat troponin 0.015 Independently reviewed EKG sinus rhythm rate 100 right bundle-branch block Imaging studies independently reviewed: Chest x-ray no acute finding Consultations: None indicated at this time Re-evaluations: 6:03 p.m.. Patient feeling much better. Vital signs improved 121/58 pulse 91, patient much more relaxed. Reviewed with her results and this is likely anxiety driven. She has been worried a lot about her cancer diagnosis and treatment. She will see your family doctor for changes in her Xanax and anxiety medication. Return precautions reviewed. She desires discharge home. 6:35 p.m.. Patient started having shakes again and breathing fast. She is worried about her dog at home. She is getting anxious. She does not want to stay any longer. She desires and agrees another dose of low amount of Valium 2.5 mg before discharge. She has to call for a ride. 7:[address] Mooney: Patient is still anxious. Has rapid breathing. Sign out to Dr. Love, CT chest will be ordered. Patient needs repeat assessment. Discussion: Appropriate for discharge home. Patient seen here recently for the same complaint. Improved with benzodiazepines. Symptoms likely due to anxiety. Feel complete relief after Valium. Return precautions reviewed. She desires discharge home. There is a shortage on Ativan that I ordered, Valium was given. No chest pain. Patient recently had CT chest no PE. Diagnosis: Anxiety attack <Destin Love MD - Last Filed: 03/24/25 01:48> Lab Data Labs: Lab Results 03/23/25 03/23/25 Range/Units 14:50 17:23 WBC 4.1 L (4.5-11.0) X10^3/uL RBC 3.81 L (4.0-5.2) X10^6/uL Hgb 12.4 (12.0-16.0) g/dL Hct 36.0 (36-46) % MCV 94.4 (80-100) fL MCH 32.4 (26-34) PG MCHC 34.3 (30-36) % RDW 18.0 H (11.6-14.8) % Plt Count 160 (150-400) X10^3/uL Neut % (Auto) 73.6 (50-75) % Lymph % (Auto) 16.1 L (25-40) % Cassia % (Auto) 10.0 (3-14) % Eos % (Auto) 0.1 L (2-4) % Baso % (Auto) 0.2 (0-2) % Neut # (Auto) 3000 (6331-3112) /uL Lymph # (Auto) 700 L (6474-3778) /uL Cassia # (Auto) 400 (0-900) /uL Eos # (Auto) 0 (0-450) /uL Baso # (Auto) 0 (0-100) /uL PT 16.7 H (9.4-12.5) SECONDS INR 1.5 H (0.9-1.3) Sodium 133 L (137-145) mmol/L Potassium 4.2 (3.4-5.1) mmol/L Chloride 100 (98-107) mmol/L Carbon Dioxide 24 (22-32) mmol/L BUN 13 (7-17) mg/dL Creatinine 0.92 (0.52-1.04) mg/dL Estimated GFR > 60 (>60) mL/min BUN/Creatinine Ratio 14.1 (6-22) Glucose 109 H (70-99) mg/dL Lactate 2.7 H 1.2 (0.7-2.1) mmol/L Calcium 11.5 H (8.4-10.2) mg/dL Total Bilirubin 1.2 (0.2-1.3) mg/dL AST 107 H (14-36) IU/L ALT 154 H (<35) IU/L Alkaline Phosphatase 80 (38-126) U/L Troponin I 0.016 0.015 (0.01-0.034) ng/mL NT-Pro-B Natriuret Pep 170 H (<125) pg/mL Total Protein 7.9 (6.3-8.2) g/dL Albumin 4.6 (3.5-5.0) g/dL Globulin 3.3 (1.7-4.1) g/dL Albumin/Globulin Ratio 1.4 (1.0-2.8) Imaging Data CT angiogram chest: Radiologist's Impression: [address] [address] [address] Scan Report Signed Patient: Gayatri Fabian#: [id number] : 1955 Acct:[id number] Age/Sex: 69 / F Date of Service: 03/23/25 Loc: ED Accession Number: [id number] Procedure: CT angio chest PE protocol Ordering Provider: Destin Love MD PROCEDURE: CT ANGIO CHEST PE PROTOCOL INDICATIONS: dyspnea, hx PE not on Rx TECHNIQUE: After the administration of intravenous contrast, 2 mm thick sections acquired from the pulmonary apices to the posterior costophrenic angles. 3-dimensional maximum intensity projection (MIP) coronal and sagittal reformats were then acquired through the thorax. For radiation dose reduction, the following was used: automated exposure control, adjustment of mA and/or kV according to patient size. COMPARISON: [facility], CT, CT CHEST ABDOMEN PELVIS WITH CONTRAST, 02/13/2025, 16:01. [facility], CT, CT ANGIO CHEST PE PROTOCOL, 02/05/2025, 21:28. FINDINGS: Image quality: Diagnostic. Thyroid: Within normal limits. Cardiac: Heart size within normal limits. No pericardial effusion. RV: LV ratio within normal limits. No bowing of the interventricular septum. No reflux of contrast into the hepatic veins. Aorta: Thoracic aortic diameter within normal limits. Pulmonary Artery: Main pulmonary artery diameter within normal limits. No central filling defect in the pulmonary arteries to the distal interlobar level. Further distal evaluation limited due to pulmonary venous contamination. Lungs: No significant change in 2 cm left upper lobe apical segment spiculated solid nodule (5/65), 1.7 cm right upper lobe spiculated solid nodule with internal cavitation (5/53), and lingular 0.6 cm ground-glass nodule (5/172). No new pulmonary nodules. The provided measurements were performed in the mean axis diameter. Status post right lower lobe lobectomy. Pleura: No pneumothorax or pleural effusion. Airways: The trachea and mainstem bronchi are patent. Lymph Nodes: No mediastinal, hilar, or axillary lymphadenopathy by size criteria. Esophagus: Within normal limits. Bones: No acute osseous abnormality. Upper Abdomen: Within normal limits. IMPRESSION: 1. No CT evidence of pulmonary embolism to the distal interlobar level. No CT evidence of right heart strain. 2. No significant change in pulmonary metastases. Dictated by: Juan Flores M.D. on 03/23/2025 at 21:02 Approved by: Juan Flores M.D. on 03/23/2025 at 21:11 [facility] Narrative Medical decision making narrative: Patient brought here by ambulance from home for complaints of shortness of breath. Denies any chest pain. Patient states symptoms started about 9:00 a.m. this morning. Patient seen here in January for shortness of breath as well. Please see notes below. Denies any cough cold or congestion. She was started on Xanax by her primary care. After a visit in January here, her appellate court judge did make medication changes for her home meds and thought it was inflammatory process, she was tapered from 60 mg prednisone daily and currently now at 15 mg daily. Patient appears very anxious. Is tachypneic. However able to speak full sentences when speaking with me. Patient states the albuterol they tried giving her last visit made things worse and does not want it. Patient states do does not feel significantly anxious, she is worried though about her cancer and treatment. It does weigh pretty heavily on her mind. After history and exam, CBC CMP BNP troponin EKG chest x-ray, no breathing treatments indicated this time. This does not appear to be pulmonary source at this time. Even though patient is tachypneic and short of breath, I will order Valium 2.5 mg as we are out of Ativan. [facility] Medical records reviewed: Differential considered: Includes but not limited to Lab Test results independently reviewed as above. Pertinent findings: WBC 4.1 hemoglobin 12.4 INR 1.5 sodium 133 potassium 4.2 BUN 13 creatinine 0.92 glucose 109 1st troponin 0.016 repeat troponin 0.015 Independently reviewed EKG sinus rhythm rate 100 right bundle-branch block Imaging studies independently reviewed: Chest x-ray no acute finding Consultations: None indicated at this time Re-evaluations: 6:03 p.m.. Patient feeling much better. Vital signs improved 121/58 pulse 91, patient much more relaxed. Reviewed with her results and this is likely anxiety driven. She has been worried a lot about her cancer diagnosis and treatment. She will see your family doctor for changes in her Xanax and anxiety medication. Return precautions reviewed. She desires discharge home. 6:35 p.m.. Patient started having shakes again and breathing fast. She is worried about her dog at home. She is getting anxious. She does not want to stay any longer. She desires and agrees another dose of low amount of Valium 2.5 mg before discharge. She has to call for a ride. 7:[address] Mooney: Patient is still anxious. Has rapid breathing. Sign out to Dr. Love, CT chest will be ordered. Patient needs repeat assessment. Discussion: Appropriate for discharge home. Patient seen here recently for the same complaint. Improved with benzodiazepines. Symptoms likely due to anxiety. Feel complete relief after Valium. Return precautions reviewed. She desires discharge home. There is a shortage on Ativan that I ordered, Valium was given. No chest pain. Patient recently had CT chest no PE. Diagnosis: Anxiety attack 03/23/25, Girish, Ivan. 69-year-old female with history of lung cancer previous lobectomy, history of prior pulmonary embolus no longer on anticoagulation, history of anxiety, initially with shortness of breath at seemed consistent with anxiety, seemed to respond to Valium dose, interim workup EKG and troponins and chest x-ray negative. Was planned for discharge but has become increasingly short of breath and quite anxious appearing. IV Valium to be re-dosed. CTA chest ordered. Assumed care. CT angiogram chest. No pulmonary embolism. No right heart strain changes. No acute pulmonary findings described. See radiology report. Patient has taken Xanax in the past for anxiety, does not seem to be helpful, seems interested in trying hydroxyzine. We will give oral dose now. She has ride home. Prescription for hydroxyzine sent to her pharmacy. Advised to follow up with her PCP for further follow up anxiety evaluation. Discharge Plan Departure Patient Disposition: Home Clinical Impression: Anxiety Instructions: DI for Anxiety -- Adult Activity Restrictions/Additional Instructions: Your laboratory studies images and EKG are reassuring. Your symptoms are likely due to anxiety episodes. Please see your family doctor for re-evaluation and medication adjustments for your anxiety. Return if worse if any questions or concerns. No driving or operating machinery tonight. Prescriptions: New hydroxyzine HCl 50 mg tablet 50 mg PO TID PRN (Reason: anxiety) Qty: 20 0RF No Action amlodipine 5 mg tablet 5 mg PO DAILY Qty: 90 3RF prednisolone acetate 1 % drops,suspension 1 drp EYE-RIGHT QID alprazolam [Xanax] 0.25 mg tablet 0.125 mg PO BID PRN (Reason: anxiety) Qty: 10 0RF multivitamin Tablet 1 tab PO DAILY cholecalciferol (vitamin D3) 25 mcg (1,000 unit) capsule 25 mcg PO DAILY Airborne Vits Zinc Elderberry 90 mg-3.15 mcg- 3.35 mg-1 mg tablet,chewable PO acetaminophen [Tylenol Extra Strength] 500 mg tablet 500 mg PO Q6H PRN prednisone 10 mg tablet See Rx Instructions PO DAILY Qty: 207 0RF Rx Instructions: take 6 tablets daily for 14 days then 5 tablets daily for 5 days then 4 tablets daily for 5 days then 3 tablets daily for 5 days then 2 tablets daily for 5 days then 1 tablet daily for 5 days then 1 tablet every other day for 5 days then stop ondansetron 4 mg tablet,disintegrating 4 mg translingual Q6H PRN (Reason: nausea and vomiting) Qty: 90 0RF Eliquis 2.5 mg tablet 2.5 mg PO BID folic acid 1 mg tablet 1 mg PO DAILY Disabled Parking Permit 1 ea Not Applicable DAILY Qty: 1 0RF Referrals: Kayla Steiner DO [Primary Care Provider] - Stand Alone Forms: Patient Portal/API/Survey
[2025-03-23 15:10] LABS: Add Manual Diff / Slide Review NO; Basophils Absolute Auto 0 /uL (0-100); Basophils Percent Auto 0.2 % (0-2); Eosinophils Absolute Auto 0 /uL (0-450); Eosinophils Percent Auto 0.1 % (2-4); Hemoglobin 12.4 g/dL (12.0-16.0); INR 1.5 (0.9-1.3); Lymphocytes Absolute Auto 700 /uL (1100-4500); Lymphocytes Percent Auto 16.1 % (25-40); Mean Corpuscular HGB Conc 34.3 % (30-36); Mean Corpuscular Hemoglobin 32.4 PG (26-34); Mean Corpuscular Volume 94.4 fL (80-100); Monocytes Absolute Auto 400 /uL (0-900); Neutrophils Absolute Auto 3000 /uL (1500-7000); Neutrophils Percent Auto 73.6 % (50-75); Platelet Count 160 X10^3/uL (150-400); Prothrombin Time 16.7 SECONDS (9.4-12.5); Red Blood Cell Count 3.81 X10^6/uL (4.0-5.2); White Blood Cell Count 4.1 X10^3/uL (4.5-11.0)
[2025-03-23 15:14] LABS: Alanine Aminotransferase 154 IU/L (<35); Albumin 4.6 g/dL (3.5-5.0); Albumin Globulin Ratio 1.4 (1.0-2.8); Alkaline Phosphatase 80 U/L (38-126); Aspartate Aminotransferase 107 IU/L (14-36); BUN Creatinine Ratio 14.1 (6-22); Bilirubin Total 1.2 mg/dL (0.2-1.3); Blood Urea Nitrogen 13 mg/dL (7-17); Calcium 11.5 mg/dL (8.4-10.2); Carbon Dioxide 24 mmol/L (22-32); Chloride 100 mmol/L (98-107); Estimated Glomerular Filt Rate > 60 mL/min (>60); Globulin 3.3 g/dL (1.7-4.1); Glucose 109 mg/dL (70-99); HEMOLYSIS 32 (0-50); Lactate (Lactic Acid) 2.7 mmol/L (0.7-2.1); Potassium 4.2 mmol/L (3.4-5.1); Sodium 133 mmol/L (137-145); Total Protein 7.9 g/dL (6.3-8.2)
[2025-03-23] MEDS: diazePAM 10 MG/2 ML SYRINGE 2.5 MG IV ×2 (15:18→18:41)
[2025-03-23 15:26] LABS: NT-proBNP (BNP-Adult 18+) 170 pg/mL (<125); Troponin I 0.016 ng/mL (0.01-0.034)
--- NOTE | 2025-03-23 16:01 | PC.NURSE ---
Patient arrives by EMS w/ SOB and hyperapnea. Reports hx of lung cancer and lower lobectomy in 2010. Lung cancer has returned. Last chemo treatment 03/14/25. Reports hx of dry cough for the past week. Has not coughed today since experiencing SOB as of this morning. SOB does not improve with rest.
[2025-03-23 16:33] LABS: Reflexed Lactate in 2 Hours Y
[2025-03-23 17:46] LABS: Lactate 2HR (Lactic Acid Rflx) 1.2 mmol/L (0.7-2.1)
[2025-03-23 17:59] LABS: Troponin I 0.015 ng/mL (0.01-0.034)
--- NOTE | 2025-03-23 19:21 | PC.NURSE ---
Upon discharging patient, became tachypnic again. Respiration rate 60s. Informed Dr Mooney. Dr Mooney at bedside. Second dose of IV diazepam administered. Patient reassured with deep breathing techniques. Respiration rate improved to 40s. Handoff given to ASHELY Mccall.
--- NOTE | 2025-03-23 19:48 | DI.CT.S_ITS ---
PROCEDURE: CT ANGIO CHEST PE PROTOCOL INDICATIONS: dyspnea, hx PE not on Rx TECHNIQUE: After the administration of intravenous contrast, 2 mm thick sections acquired from the pulmonary apices to the posterior costophrenic angles. 3-dimensional maximum intensity projection (MIP) coronal and sagittal reformats were then acquired through the thorax. For radiation dose reduction, the following was used: automated exposure control, adjustment of mA and/or kV according to patient size. COMPARISON: [facility], CT, CT CHEST ABDOMEN PELVIS WITH CONTRAST, 02/13/2025, 16:01. [facility], CT, CT ANGIO CHEST PE PROTOCOL, 02/05/2025, 21:28. FINDINGS: Image quality: Diagnostic. Thyroid: Within normal limits. Cardiac: Heart size within normal limits. No pericardial effusion. RV: LV ratio within normal limits. No bowing of the interventricular septum. No reflux of contrast into the hepatic veins. Aorta: Thoracic aortic diameter within normal limits. Pulmonary Artery: Main pulmonary artery diameter within normal limits. No central filling defect in the pulmonary arteries to the distal interlobar level. Further distal evaluation limited due to pulmonary venous contamination. Lungs: No significant change in 2 cm left upper lobe apical segment spiculated solid nodule (5/65), 1.7 cm right upper lobe spiculated solid nodule with internal cavitation (5/53), and lingular 0.6 cm ground-glass nodule (5/172). No new pulmonary nodules. The provided measurements were performed in the mean axis diameter. Status post right lower lobe lobectomy. Pleura: No pneumothorax or pleural effusion. Airways: The trachea and mainstem bronchi are patent. Lymph Nodes: No mediastinal, hilar, or axillary lymphadenopathy by size criteria. Esophagus: Within normal limits. Bones: No acute osseous abnormality. Upper Abdomen: Within normal limits. IMPRESSION: 1. No CT evidence of pulmonary embolism to the distal interlobar level. No CT evidence of right heart strain. 2. No significant change in pulmonary metastases. Dictated by: Juan Flores M.D. on 03/23/2025 at 21:02 Approved by: Juan Flores M.D. on 03/23/2025 at 21:11
[2025-03-23] MEDS: hydrOXYzine HCL 25 MG TABLET 50 MG PO (21:40)
== END 2025-03-23 21:55 | disposition home or self-care (01) ==
PROVIDERS: Emergency Medicine; Emergency Provider Emergency Medicine; PCP Family Medicine
DX: F41.9 Anxiety disorder, unspecified (principal); K59.00 Constipation, unspecified; R06.00 Dyspnea, unspecified; C34.90 Malignant neoplasm of unspecified part of unspecified bronchus or lung
CPT/HCPCS: 36415; 71045; 71275; 80053; 83605; 83880; 84484; 85025; 85610; 93005; 93010; 96374; 96376; 99284; A9270; J3360

== ENCOUNTER → 2025-04-11 14:57 | Outpatient (CLI) | payer MEDICARE, OTHER, SELFPAY | PROVIDERS: PCP Family Medicine; Referring Provider Internal Medicine; Visit Provider Internal Medicine | DX: J96.01 Acute respiratory failure with hypoxia (principal); J98.4 Other disorders of lung; C34.31 Malignant neoplasm of lower lobe, right bronchus or lung; I26.99 Other pulmonary embolism without acute cor pulmonale; H20.9 Unspecified iridocyclitis; Z68.27 Body mass index [BMI] 27.0-27.9, adult | CPT/HCPCS: 36415; 87449; 99215 ==

== ENCOUNTER 2025-05-02 12:25 | Emergency (ER) | payer MEDICARE, OTHER, SELFPAY ==
[2025-05-02] VITALS (17 sets, daily range): BP systolic 125–168; BP diastolic 60–79; PULSE 71–115; RESP 13–50; TEMP 36.2–36.5; O2SAT 95–99
--- NOTE | 2025-05-02 12:45 | DI.RAD.S_ITS ---
PROCEDURE: XR CHEST 1V INDICATIONS: Shortness of breath TECHNIQUE: One view of the chest was acquired. COMPARISON: [facility], CR, XR CHEST 1V, 03/23/2025, 14:46. [facility], CR, XR CHEST 1V, 02/05/2025, 18:56. FINDINGS: Surgical changes and devices: Left chest wall Port-A-Cath. Lungs and pleura: Lungs are clear. No pleural effusions or pneumothorax. Mediastinum: Mediastinal contours appear normal. Heart size is normal. Bones and chest wall: No suspicious bony lesions. Overlying soft tissues appear unremarkable. IMPRESSION: No acute cardiopulmonary abnormality is seen. Dictated by: Babar Farias M.D. on 05/02/2025 at 13:17 Approved by: Babar Farias M.D. on 05/02/2025 at 13:18
--- NOTE | 2025-05-02 12:45 | EKG_ITS ---
[address] [address] Test Date: 2025-05-02 Pat Name: Gayatri Camp Department: Room: Gender: Female Cryptologic Technician Technical: STEPHANIE : 1955 Requested By: Order Number: [id number] Reading MD: Piter John MD Measurements Intervals [place] Rate: 87 P: 38 HI: 86 QRS: 31 QRSD: 138 T: 33 QT: 390 QTc: 469 Interpretive Statements Sinus rhythm with short HI Right bundle branch block NO SIGNIFICANT CHANGE FROM PRIOR TRACING Electronically Signed On 05-03-2025 8:44:41 PDT by Piter John MD
--- NOTE | 2025-05-02 13:15 | ED.SOB ---
HPI - SOB/Dyspnea General Chief Complaint: Shortness of Breath/Dyspnea Stated Complaint: SOB Time Seen by Provider: 05/02/25 13:01 History of Present Illness HPI Narrative: Patient is seen at primary care office this morning just prior to arrival and saw Dr. Steiner, he spoke with me and once patient evaluated for shortness of breath. Patient has had increased shortness of breath for the past couple of days. Patient is on nasal cannula continuous at home but requiring more. Patient has history of chemo and radiation therapy for right lung cancer lobectomy, pulmonary embolism on Eliquis. Patient does see Dr. Brizuela, oncology service at [facility]. Patient also sees pulmonary provider here locally doctor adelaide. Patient was placed on antibiotics by her oncologist last week for possible pneumonia. Patient was placed on steroids by her industrial chemicals supervisor recently and is still on them. Patient is to your left both and had same symptoms and improved with Valium. However she states symptoms are different today. She does not feel anxious. Related Data Home Medications ?Medication ?Instructions ?Recorded ?Confirmed acetaminophen 500 mg tablet 500 mg PO Q6H PRN 03/16/24 05/02/25 (Tylenol Extra Strength) cholecalciferol (vitamin D3) 25 25 mcg PO DAILY 03/16/24 05/02/25 mcg (1,000 unit) capsule multivitamin 1 tab PO DAILY 03/16/24 05/02/25 vit C 90 mg-D3 3.15 mcg-E 3.35 tab PO 03/16/24 05/02/25 [id number] 65 mg chew tablet (Airborne Vits Zinc Elderberry) prednisolone acetate 1 % eye 1 drp EYE-RIGHT QID 10/25/24 05/02/25 drops,suspension apixaban 2.5 mg tablet (Eliquis) 2.5 mg PO BID 03/07/25 05/02/25 folic acid 1 mg tablet 1 mg PO DAILY 03/07/25 05/02/25 dapsone 100 mg tablet 100 mg PO DAILY taken daily 05/02/25 05/02/25 w/prednisone therapy; ordered by oncol Previous Rx's ?Medication ?Instructions ?Recorded ondansetron 4 mg disintegrating 4 mg translingual Q6H PRN nausea 07/28/24 tablet and vomiting #90 tabs amlodipine 5 mg tablet 5 mg PO DAILY #90 tabs 10/25/24 Disabled Parking Permit 1 ea Not Applicable DAILY #1 ea 03/07/25 mycophenolate mofetil 500 mg tablet See Rx Instructions PO BID #120 05/05/25 tabs prednisone 20 mg tablet 60 mg (3 x 20 mg) PO DAILY #120 05/05/25 tabs buspirone 10 mg tablet 10 mg PO BID #60 tabs 05/08/25 lorazepam 0.5 mg tablet 0.5 mg PO TID PRN anxiety #30 tabs 05/08/25 Allergies Allergy/AdvReac Type Severity Reaction Status Date / Time albuterol Allergy Severe Difficulty Verified 05/02/25 13:26 Breathing alprazolam AdvReac Intermediate jittery Verified 05/02/25 13:26 Sulfa (Sulfonamide AdvReac Rash Verified 05/02/25 13:26 Antibiotics) Review of Systems Review of Systems Narrative: GENERAL: Negative chills, fatigue, malaise, fever, sweats. HEENT: Negative sinus pain, ear pain, sore throat RESPIRATORY: Positive dyspnea, negative cough CARDIOVASCULAR: Negative chest pain, palpitations GASTROINTESTINAL: Negative vomiting, nausea, abdominal pain : Negative dysuria, frequency, hematuria MUSCULOSKELETAL: Negative muscle or bony pain SKIN: Negative rash, skin lesions NEUROLOGIC: Negative weakness, numbness Psychiatric: Positive anxiety ROS Unobtainable: All systems reviewed & are unremarkable except as noted in HPI and below Patient History Medical History (Updated 05/17/25 @ 00:00 by ) Acute hypoxic respiratory failure Pneumonitis Pulmonary embolism Localized swelling, mass and lump, neck IFG (impaired fasting glucose) Cataracts, bilateral (~2018) Fibroids (~2008) Thyroid nodule (~2022) Hyperparathyroidism Surgical History Anesthesia S/P thyroid biopsy (~2021) History of left knee surgery (~2018) History of colonoscopy (~2013) History of lobectomy of lung (~2010) History of right knee surgery (~2005) History of carpal tunnel release (~2000) Family History Father Parkinson's disease Mother Parkinson's disease Osteoporosis Uterine cancer Grandfather Cancer Grandmother History of heart disease Grandfather History of heart disease Grandmother History of heart disease Exam Narrative Exam Narrative: GENERAL: in no distress, not toxic not dyspneic HEAD: Normocephalic. EYES: Pupils equal round ENT: Mucous membranes moist. NECK: Trachea midline. CARDIOVASCULAR: Regular rate and rhythm RESPIRATORY: Clear to auscultation. Breath sounds equal bilaterally. No wheezes, rales, or rhonchi. However, patient is dyspneic. Although able to speak full sentences. GASTROINTESTINAL: Abdomen soft, non-tender EXTREMITIES: No gross deformities. No leg ankle edema. Bilaterally. BACK: No flank tenderness. NEURO: AOx4. Clear speech SKIN: Warm and dry PSYCH: Is slightly anxious, is cooperative Initial Vital Signs Initial Vital Signs: Vital Signs Pulse Rate 98 H 05/02/25 12:51 Pulse Oximetry 96 05/02/25 12:51 Course Orders Ordered: Discontinued Medications Diazepam (Diazepam 5 Mg Tablet) 5 mg PO NOW ONE Stop: 05/02/25 15:26 Last Admin: 05/02/25 15:48 Dose: 5 mg Documented By: SAHIL Methylprednisolone (Methylprednisolone 125 Mg/2 Ml Vial) 125 mg IV NOW ONE Stop: 05/02/25 13:15 Last Admin: 05/02/25 13:25 Dose: 125 mg Documented By: SAHIL Vital Signs Vital signs: Vital Signs - 8 hr 05/02/25 12:51 05/02/25 12:56 05/02/25 12:56 Temperature Pulse Rate 98 H 91 H Respiratory Rate Blood Pressure 166/74 H Pulse Oximetry 96 97 Oxygen Delivery Method Oxygen Flow Rate 05/02/25 13:00 05/02/25 13:00 05/02/25 13:26 Temperature 97.2 F L Pulse Rate 86 90 Respiratory Rate 18 Blood Pressure 146/60 H 166/74 H Pulse Oximetry 97 97 Oxygen Delivery Method Room Air Oxygen Flow Rate 05/02/25 13:30 05/02/25 13:30 05/02/25 14:10 Temperature Pulse Rate 88 82 Respiratory Rate 37 H 47 H Blood Pressure 168/79 H Pulse Oximetry 96 99 Oxygen Delivery Method Nasal Cannula Oxygen Flow Rate 2 05/02/25 14:11 05/02/25 14:11 05/02/25 14:30 Temperature Pulse Rate 82 115 H Respiratory Rate 50 H 33 H Blood Pressure 152/65 H Pulse Oximetry 97 96 Oxygen Delivery Method Oxygen Flow Rate 05/02/25 14:31 05/02/25 14:31 05/02/25 15:00 Temperature Pulse Rate 95 H Respiratory Rate 40 H Blood Pressure 143/71 H 148/70 H Pulse Oximetry 96 Oxygen Delivery Method Nasal Cannula Oxygen Flow Rate 2 05/02/25 15:00 05/02/25 15:30 05/02/25 15:30 Temperature Pulse Rate 77 78 Respiratory Rate 21 16 Blood Pressure 155/73 H Pulse Oximetry 97 96 Oxygen Delivery Method Nasal Cannula Oxygen Flow Rate 2 05/02/25 16:00 05/02/25 16:00 05/02/25 16:30 Temperature Pulse Rate 80 72 Respiratory Rate 23 19 Blood Pressure 150/66 H Pulse Oximetry 96 95 Oxygen Delivery Method Room Air Nasal Cannula Oxygen Flow Rate 2 05/02/25 16:30 Temperature Pulse Rate Respiratory Rate Blood Pressure 125/63 Pulse Oximetry Oxygen Delivery Method Oxygen Flow Rate MDM - SOB/Dyspnea Lab Data 05/02/25 13:03 05/02/25 13:03 Labs: Lab Results 05/02/25 05/02/25 05/02/25 Range/Units 13:03 13:27 15:19 WBC 6.7 (4.5-11.0) X10^3/uL RBC 3.75 L (4.0-5.2) X10^6/uL Hgb 12.0 (12.0-16.0) g/dL Hct 35.1 L (36-46) % MCV 93.6 (80-100) fL MCH 32.0 (26-34) PG MCHC 34.2 (30-36) % RDW 16.1 H (11.6-14.8) % Plt Count 261 (150-400) X10^3/uL Neut % (Auto) 87.7 H (50-75) % Lymph % (Auto) 11.5 L (25-40) % [place] % (Auto) 0.7 L (3-14) % Eos % (Auto) 0.0 L (2-4) % Baso % (Auto) 0.1 (0-2) % Neut # (Auto) 5900 (1951-1161) /uL Lymph # (Auto) 800 L (0138-6689) /uL [place] # (Auto) 0 (0-900) /uL Eos # (Auto) 0 (0-450) /uL Baso # (Auto) 0 (0-100) /uL PT 12.1 (9.4-12.5) SECONDS INR 1.1 (0.9-1.3) VBG pH 7.60 H (7.33-7.43) VBG pCO2 22.3 L (45-50) mmHg VBG pO2 27 L (35-45) mmHg VBG HCO3 22 L (24-28) mmol/L VBG Total CO2 20 L (24-29) mmol/L VBG O2 Saturation 64 L (70-75) % VBG Base Excess 1.2 (0-4) mmol/L Sodium 132 L (137-145) mmol/L Potassium 3.9 (3.4-5.1) mmol/L Chloride 98 (98-107) mmol/L Carbon Dioxide 22 (22-32) mmol/L BUN 22 H (7-17) mg/dL Creatinine 0.85 (0.52-1.04) mg/dL Estimated GFR > 60 (>60) mL/min BUN/Creatinine Ratio 25.9 H (6-22) Glucose 94 (70-99) mg/dL Lactate 3.8 H 2.8 H (0.7-2.1) mmol/L Calcium 11.4 H (8.4-10.2) mg/dL Total Bilirubin 2.2 H (0.2-1.3) mg/dL AST 55 H (14-36) IU/L ALT 73 H (<35) IU/L Alkaline Phosphatase 96 (38-126) U/L Troponin I 0.018 (0.01-0.034) ng/mL NT-Pro-B Natriuret Pep 264 H (<125) pg/mL Total Protein 7.2 (6.3-8.2) g/dL Albumin 4.7 (3.5-5.0) g/dL Globulin 2.5 (1.7-4.1) g/dL Albumin/Globulin Ratio 1.9 (1.0-2.8) Imaging Data Chest x-ray: Radiologist's Impression: [address] [address] XRay Report Signed Patient: Gayatri Fabian MR#: [id number] : 1955 Acct:[id number] Age/Sex: 69 / F Date of Service: 05/02/25 Loc: ED Accession Number: [id number] Procedure: XR chest 1V Ordering Provider: Arash Mooney MD PROCEDURE: XR CHEST 1V INDICATIONS: Shortness of breath TECHNIQUE: One view of the chest was acquired. COMPARISON: [facility], CR, XR CHEST 1V, 03/23/2025, 14:46. [facility], CR, XR CHEST 1V, 02/05/2025, 18:56. FINDINGS: Surgical changes and devices: Left chest wall Port-A-Cath. Lungs and pleura: Lungs are clear. No pleural effusions or pneumothorax. Mediastinum: Mediastinal contours appear normal. Heart size is normal. Bones and chest wall: No suspicious bony lesions. Overlying soft tissues appear unremarkable. IMPRESSION: No acute cardiopulmonary abnormality is seen. Dictated by: Babar Farias M.D. on 05/02/2025 at 13:17 Approved by: Babar Farias M.D. on 05/02/2025 at 13:18 CT scan - chest: Radiologist's Impression: [place] [address] CT Scan Report Signed Patient: Gayatri Fabian MR#: [id number] : 1955 Acct:[id number] Age/Sex: 69 / F Date of Service: 05/02/25 Loc: ED Accession Number: [id number] Procedure: CT angio chest PE protocol Ordering Provider: Arash Mooney MD PROCEDURE: CT ANGIO CHEST PE PROTOCOL INDICATIONS: Dyspnea TECHNIQUE: After the administration of intravenous contrast, 2 mm thick sections acquired from the pulmonary apices to the posterior costophrenic angles. 3-dimensional maximum intensity projection (MIP) coronal and sagittal reformats were then acquired through the thorax. For radiation dose reduction, the following was used: automated exposure control, adjustment of mA and/or kV according to patient size. COMPARISON: [facility], CT, CT ANGIO CHEST PE PROTOCOL, 03/23/2025, 20:03. FINDINGS: Image quality: Diagnostic Lungs and pleura: Multiple pulmonary nodules again seen, largest in the upper lungs. No new consolidation or pleural effusion. Mediastinum, heart, and esophagus: No acute pulmonary embolism. Right hilar and infrahilar postsurgical changes again seen. Trace pericardial effusion. No pathologic lymph nodes by size criteria. The left port catheter terminates in the SVC. Chest wall and thyroid: Trace hiatal hernia. Left thyroid nodule again seen, better assessed on ultrasound. Upper abdomen: No gross abnormality on these arterial phase images Bones: There are degenerative osseous findings. No aggressive appearing osseous abnormality. IMPRESSION: No acute pulmonary embolism. Metastatic pulmonary nodules again seen. No new airspace consolidation or drainable effusion. Trace pericardial effusion. Dictated by: Stephen Fried M.D. on 05/02/2025 at 14:52 Approved by: Stephen Fried M.D. on 05/02/2025 at 14:[address] [facility] Narrative Medical decision making narrative: Patient is seen at primary care office this morning just prior to arrival and saw Dr. Steiner, he spoke with me and once patient evaluated for shortness of breath. Patient has had increased shortness of breath for the past couple of days. Patient is on nasal cannula continuous at home but requiring more. Patient has history of chemo and radiation therapy for right lung cancer lobectomy, pulmonary embolism on Eliquis. Patient does see Dr. Brizuela, oncology service at [facility]. Patient also sees pulmonary provider here locally doctor brysno. Patient was placed on antibiotics by her oncologist last week for possible pneumonia. Patient was placed on steroids by her industrial chemicals supervisor recently and is still on them. Patient is to your left both and had same symptoms and improved with Valium. However she states symptoms are different today. She does not feel anxious. After history and exam, CBC CMP EKG CT chest, patient allergic to albuterol. We will give Solu-Medrol. Troponin BNP [facility] Medical records reviewed: ER visit here March 23, 2025 and February 05, 2025 Differential considered: Includes but not limited to pulmonary embolism, worsening lung cancer, COPD Lab Test results independently reviewed as above. Pertinent findings: WBC 6.7 hemoglobin 12.0 VBG 7.6, 22.3, 27 sodium 132 potassium 3.9 lactate 3.8 AST 55 ALT 73 BNP 264 Independently reviewed EKG sinus rhythm rate [address] elevation or depression. Right bundle-branch block. Imaging studies independently reviewed: Chest x-ray CT chest no acute finding Consultations: None indicated at this time Re-evaluations: 3:24 p.m.. Patient is feeling better. She would like to try some Valium because she would like to go home. She feels a little nervous like she did last time. Reviewed results with her and they are reassuring at this time. 5:10 p.m.. Patient feeling much better. Complete resolution of her anxiety and breathing is much better after Valium. She desires discharge home. She does not want repeat VBG. She is mentating awake alert oriented x4. On her baseline 2 L nasal cannula. Vital signs are reassuring. Patient states she has a Xanax and lorazepam at home if she needs to take it for anxiety. She thinks now that her episodes are due to anxiety. Return precautions reviewed. She desires discharge home. Discussion: Appropriate for discharge home. Exam is reassuring laboratory studies imaging studies are reassuring. Patient did improve with Valium Return precautions reviewed. She desires discharge home Diagnosis: Dyspnea/anxiety Discharge Plan Departure Patient Disposition: Home Clinical Impression: Acute dyspnea, Anxiety Instructions: DI for Anxiety -- Adult Activity Restrictions/Additional Instructions: I am glad you are feeling better. It appears your anxiety medication can help you with your symptoms. You may try this at home. However return immediately if worse if not improving with shortness of breath. See family doctor in a week for re-evaluation. Return if worse if any questions or concerns. Prescriptions: No Action mycophenolate mofetil 500 mg tablet See Rx Instructions PO BID Qty: 120 0RF Rx Instructions: take 1 tablet twice daily for 1 week then 2 tablets twice daily until otherwise directed prednisone 20 mg tablet 60 mg PO DAILY Qty: 120 0RF amlodipine 5 mg tablet 5 mg PO DAILY Qty: 90 3RF prednisolone acetate 1 % drops,suspension 1 drp EYE-RIGHT QID dapsone 100 mg tablet 100 mg PO DAILY lorazepam 0.5 mg tablet 0.5 mg PO TID PRN (Reason: anxiety) Qty: 30 1RF buspirone 10 mg tablet 10 mg PO BID Qty: 60 5RF multivitamin Tablet 1 tab PO DAILY cholecalciferol (vitamin D3) 25 mcg (1,000 unit) capsule 25 mcg PO DAILY Airborne Vits Zinc Elderberry 90 mg-3.15 mcg- 3.35 mg-1 mg tablet,chewable PO acetaminophen [Tylenol Extra Strength] 500 mg tablet 500 mg PO Q6H PRN ondansetron 4 mg tablet,disintegrating 4 mg translingual Q6H PRN (Reason: nausea and vomiting) Qty: 90 0RF Eliquis 2.5 mg tablet 2.5 mg PO BID folic acid 1 mg tablet 1 mg PO DAILY Disabled Parking Permit 1 ea Not Applicable DAILY Qty: 1 0RF Referrals: Kayla Steiner DO [Primary Care Provider, Family Practice] Stand Alone Forms: Patient Portal/API
[2025-05-02 13:18] LABS: Add Manual Diff / Slide Review NO; Basophils Absolute Auto 0 /uL (0-100); Basophils Percent Auto 0.1 % (0-2); Eosinophils Absolute Auto 0 /uL (0-450); Hematocrit 35.1 % (36-46); Lymphocytes Absolute Auto 800 /uL (1100-4500); Lymphocytes Percent Auto 11.5 % (25-40); Mean Corpuscular HGB Conc 34.2 % (30-36); Mean Corpuscular Volume 93.6 fL (80-100); Monocytes Absolute Auto 0 /uL (0-900); Monocytes Percent Auto 0.7 % (3-14); Neutrophils Absolute Auto 5900 /uL (1500-7000); Neutrophils Percent Auto 87.7 % (50-75); Platelet Count 261 X10^3/uL (150-400); Red Blood Cell Count 3.75 X10^6/uL (4.0-5.2); Red Cell Distribution Width 16.1 % (11.6-14.8); White Blood Cell Count 6.7 X10^3/uL (4.5-11.0)
[2025-05-02 13:23] LABS: INR 1.1 (0.9-1.3); Prothrombin Time 12.1 SECONDS (9.4-12.5)
[2025-05-02] MEDS: methylPREDNISolone 125 MG/2 ML VIAL IV (13:25)
[2025-05-02 13:27] LABS: Alanine Aminotransferase 73 IU/L (<35); Albumin 4.7 g/dL (3.5-5.0); Albumin Globulin Ratio 1.9 (1.0-2.8); Alkaline Phosphatase 96 U/L (38-126); Aspartate Aminotransferase 55 IU/L (14-36); BUN Creatinine Ratio 25.9 (6-22); Bilirubin Total 2.2 mg/dL (0.2-1.3); Blood Urea Nitrogen 22 mg/dL (7-17); Calcium 11.4 mg/dL (8.4-10.2); Carbon Dioxide 22 mmol/L (22-32); Chloride 98 mmol/L (98-107); Estimated Glomerular Filt Rate > 60 mL/min (>60); Globulin 2.5 g/dL (1.7-4.1); Glucose 94 mg/dL (70-99); HEMOLYSIS < 15 (0-50); Lactate (Lactic Acid) 3.8 mmol/L (0.7-2.1); Potassium 3.9 mmol/L (3.4-5.1); Sodium 132 mmol/L (137-145); Total Protein 7.2 g/dL (6.3-8.2)
[2025-05-02 13:31] LABS: Base Excess VBG 1.2 mmol/L (0-4); HCO3 VBG 22 mmol/L (24-28); Oxygen Saturation VBG 64 % (70-75); PCO2 VBG 22.3 mmHg (45-50); PO2 VBG 27 mmHg (35-45); Total CO2 VBG 20 mmol/L (24-29)
--- NOTE | 2025-05-02 13:35 | PC.NURSE ---
Pt reports taking Keytruda or pembrolizumab last month.
[2025-05-02 13:38] LABS: NT-proBNP (BNP-Adult 18+) 264 pg/mL (<125); Troponin I 0.018 ng/mL (0.01-0.034)
[2025-05-02 14:45] LABS: Reflexed Lactate in 2 Hours Y
[2025-05-02 15:39] LABS: Lactate 2HR (Lactic Acid Rflx) 2.8 mmol/L (0.7-2.1)
[2025-05-02] MEDS: diazePAM 5 MG TABLET PO (15:48)
--- NOTE | 2025-05-02 17:34 | PC.NURSE ---
This RUBBER GOODS FINISHER and Security, Dagoberto, were asked to retrieve an oxygen tank from a patients vehicle. Pt was able to tell us that her vehicle was parked at the [address] outside of 's office and Make and Model of vehicle. Hemanth Garcia. It was noted that vehicle was locked upon arrival, Oxygen tank was retrieved from left rear door and vehicle was locked. This RUBBER GOODS FINISHER returned to ED department with Pt keys and Oxygen tank and returned both items to the pt.
== END 2025-05-02 17:55 | disposition home or self-care (01) ==
PROVIDERS: Emergency Provider Emergency Medicine; PCP Family Medicine
DX: R06.00 Dyspnea, unspecified (principal); F41.9 Anxiety disorder, unspecified
CPT/HCPCS: 36415; 71045; 71275; 80053; 82805; 83605; 83880; 84484; 85025; 85610; 93005; 93010; 96374; 99285; J2919; Q9967

== ENCOUNTER 2025-05-30 18:05 | Observation (INO) | payer MEDICARE, OTHER, SELFPAY ==
[2025-05-30] VITALS (15 sets, daily range): BP systolic 142–176; BP diastolic 66–85; PULSE 69–85; RESP 13–38; TEMP 36.3–36.6; O2SAT 86–92
--- NOTE | 2025-05-30 18:43 | EKG_ITS ---
[address] [address] Test Date: 2025-05-30 Pat Name: Gayatri Camp Department: [facility] Room: Gender: Female Eligibility Clerk: : 1955 Requested By: Order Number: [id number] Reading MD: Quincy Dewey Measurements Intervals [place] Rate: 76 P: 59 AR: 122 QRS: 51 QRSD: 128 T: 48 QT: 390 QTc: 438 Interpretive Statements Normal sinus rhythm Right bundle branch block Electronically Signed On 06-01-2025 13:37:48 PDT by Quincy Dewey
--- NOTE | 2025-05-30 18:43 | DI.RAD.S_ITS ---
PROCEDURE: XR CHEST 1V INDICATIONS: Shortness of breath TECHNIQUE: One view of the chest was acquired. COMPARISON: [facility], , XR CHEST 1V, 05/02/2025, 12:43. [facility], CR, XR CHEST 1V, 03/23/2025, 14:46. FINDINGS: Surgical changes and devices: Left chest wall port tip projects over the cavoatrial junction. Lungs and pleura: Left upper lobe nodule is unchanged from prior. No consolidation. Mediastinum: Mediastinal contours appear normal. Heart size is normal. Bones and chest wall: No suspicious bony lesions. Overlying soft tissues appear unremarkable. IMPRESSION: No acute cardiopulmonary abnormality is seen. Dictated by: Willy Velazquez M.D. on 05/30/2025 at 19:25 Approved by: Willy Velazquez M.D. on 05/30/2025 at 19:27
--- NOTE | 2025-05-30 20:10 | ED.SOB ---
HPI - SOB/Dyspnea General Chief Complaint: Shortness of Breath/Dyspnea Stated Complaint: Sob/Eye issues History of Present Illness HPI Narrative: 69-year-old female history of lung cancer on chemo since November chronically on 2 L O2 nasal cannula presents with shortness of breath, feeling weaker than usual, and also noticed that both eyes are bloodshot and she does not drink was seen at urgent Care told she had jaundice needed to come to the ER for further workup. Patient is not having any active chest pain, but did notice her legs were little bit more swollen than usual, but no fevers, chills, body aches, nausea, vomiting, diarrhea, or sick contacts. Other than what is stated 14 point review of system is negative. Related Data Home Medications ?Medication ?Instructions ?Recorded ?Confirmed acetaminophen 500 mg tablet 500 mg PO Q6H PRN 03/16/24 05/02/25 (Tylenol Extra Strength) cholecalciferol (vitamin D3) 25 25 mcg PO DAILY 03/16/24 05/02/25 mcg (1,000 unit) capsule multivitamin 1 tab PO DAILY 03/16/24 05/02/25 vit C 90 mg-D3 3.15 mcg-E 3.35 tab PO 03/16/24 05/02/25 [id number] 65 mg chew tablet (Airborne Vits Zinc Elderberry) prednisolone acetate 1 % eye 1 drp EYE-RIGHT QID 10/25/24 05/02/25 drops,suspension apixaban 2.5 mg tablet (Eliquis) 2.5 mg PO BID 03/07/25 05/02/25 folic acid 1 mg tablet 1 mg PO DAILY 03/07/25 05/02/25 dapsone 100 mg tablet 100 mg PO DAILY taken daily 05/02/25 05/02/25 w/prednisone therapy; ordered by oncol Previous Rx's ?Medication ?Instructions ?Recorded ondansetron 4 mg disintegrating 4 mg translingual Q6H PRN nausea 07/28/24 tablet and vomiting #90 tabs amlodipine 5 mg tablet 5 mg PO DAILY #90 tabs 10/25/24 [address]ing Permit 1 ea Not Applicable DAILY #1 ea 03/07/25 mycophenolate mofetil 500 mg tablet See Rx Instructions PO BID #120 05/05/25 tabs prednisone 20 mg tablet 60 mg (3 x 20 mg) PO DAILY #120 05/05/25 tabs buspirone 10 mg tablet 10 mg PO BID #60 tabs 05/08/25 lorazepam 0.5 mg tablet 0.5 mg PO TID PRN anxiety #30 tabs 05/23/25 Allergies Allergy/AdvReac Type Severity Reaction Status Date / Time albuterol Allergy Severe Difficulty Verified 05/02/25 13:26 Breathing alprazolam AdvReac Intermediate jittery Verified 05/02/25 13:26 Sulfa (Sulfonamide AdvReac Rash Verified 05/02/25 13:26 Antibiotics) Review of Systems Review of Systems ROS Unobtainable: All systems reviewed & are unremarkable except as noted in HPI and below Patient History Medical History (Updated 05/31/25 @ 00:15 by Piter Marie DO) MARI (generalized anxiety disorder) Acute hypoxic respiratory failure Pneumonitis Pulmonary embolism Localized swelling, mass and lump, neck IFG (impaired fasting glucose) Cataracts, bilateral (~2018) Fibroids (~2008) Thyroid nodule (~2022) Hyperparathyroidism Surgical History Anesthesia S/P thyroid biopsy (~2021) History of left knee surgery (~2018) History of colonoscopy (~2013) History of lobectomy of lung (~2010) History of right knee surgery (~2005) History of carpal tunnel release (~2000) Family History Father Parkinson's disease Mother Parkinson's disease Osteoporosis Uterine cancer Grandfather Cancer Grandmother History of heart disease Grandfather History of heart disease Grandmother History of heart disease tobacco type: cigarettes Exam Narrative Exam Narrative: GENERAL: [69] year old patient appears stated age. Well-developed patient, in mild distress. HEAD: Atraumatic. Normocephalic. EYES: Pupils equal round and reactive. Extraocular motions intact. No scleral icterus. No injection or drainage. ENT: Nose without bleeding, purulent drainage. Throat without erythema, tonsillar hypertrophy or exudate. Airway patent. NECK: Trachea midline. Non tender CARDIOVASCULAR: Regular rate and rhythm without murmurs, gallops, or rubs. RESPIRATORY: Clear to auscultation. Breath sounds equal bilaterally. No wheezes, rales, or rhonchi. GASTROINTESTINAL: Abdomen soft, non-tender, nondistended. EXTREMITIES: No edema or joint tenderness. BACK: Nontender without deformity or crepitance. No flank tenderness. NEURO: AOx3. SKIN: No rash or erythema of visible areas Initial Vital Signs Initial Vital Signs: Vital Signs Temperature 97.3 F L 05/30/25 18:14 Pulse Rate 69 05/30/25 18:14 Respiratory Rate 26 H 05/30/25 18:14 Blood Pressure 142/85 H 05/30/25 18:14 Pulse Oximetry 88 L 05/30/25 18:14 Oxygen Delivery Method Room Air 05/30/25 18:14 Course Orders Ordered: ED Orders 05/30/25 18:43 XR chest 1V Stat EKG-12 Lead Stat Measure peak expiratory flow STAT RT Consult Eval and Treat STAT 05/30/25 19:54 Complete Blood Count AUTO DIFF Stat Comprehensive Metabolic Panel Stat Lactate (Lactic Acid) Stat NT-proBNP (BNP-Adult 18+) Stat Prothrombin Time INR Stat Troponin I Stat 05/30/25 20:40 Type and Screen Stat transfuse [Packed Cells] Stat Vital Signs Vital signs: Vital Signs - 8 hr 05/30/25 18:14 05/30/25 19:42 05/30/25 19:47 Temperature 97.3 F L Pulse Rate 69 82 Respiratory Rate 26 H Blood Pressure 142/85 H 146/67 H Pulse Oximetry 88 L 91 Oxygen Delivery Method Room Air Oxygen Flow Rate 05/30/25 19:47 05/30/25 20:00 05/30/25 20:00 Temperature Pulse Rate 80 85 Respiratory Rate Blood Pressure 145/69 H Pulse Oximetry 91 92 Oxygen Delivery Method Nasal Cannula Oxygen Flow Rate 2 05/30/25 20:30 05/30/25 20:30 05/30/25 21:00 Temperature Pulse Rate 79 Respiratory Rate 38 H Blood Pressure 176/74 H 171/77 H Pulse Oximetry 91 Oxygen Delivery Method Nasal Cannula Oxygen Flow Rate 2 05/30/25 21:00 05/30/25 21:30 05/30/25 21:30 Temperature Pulse Rate 80 77 Respiratory Rate 25 H 23 Blood Pressure 146/66 H Pulse Oximetry 91 91 Oxygen Delivery Method Oxygen Flow Rate 05/30/25 22:00 05/30/25 22:00 05/30/25 22:04 Temperature Pulse Rate 78 Respiratory Rate 17 Blood Pressure 156/71 H 149/67 H Pulse Oximetry 91 Oxygen Delivery Method Oxygen Flow Rate 05/30/25 22:04 05/30/25 22:06 05/30/25 22:24 Temperature 97.9 F 97.8 F Pulse Rate 76 78 76 Respiratory Rate 24 21 18 Blood Pressure 149/67 H 166/78 H Pulse Oximetry 92 Oxygen Delivery Method Oxygen Flow Rate MDM - SOB/Dyspnea Lab Data 05/30/25 19:54 05/30/25 19:54 Labs: Lab Results 05/30/25 05/30/25 Range/Units 19:54 20:40 WBC 8.6 (4.5-11.0) X10^3/uL RBC 1.86 L (4.0-5.2) X10^6/uL Hgb 6.7 L* (12.0-16.0) g/dL Hct 20.0 L* (36-46) % MCV 107.4 H (80-100) fL MCH 35.9 H (26-34) PG MCHC 33.4 (30-36) % RDW 29.0 H (11.6-14.8) % Plt Count 142 L (150-400) X10^3/uL Neut % (Auto) Not Reportable Lymph % (Auto) Not Reportable Whitman % (Auto) Not Reportable Eos % (Auto) Not Reportable Baso % (Auto) Not Reportable Lymph # (Auto) Not Reportable [place] # (Auto) Not Reportable Baso # (Auto) Not Reportable Total Counted 100 Seg Neutrophils % 75.0 H (38-70) % Lymphocytes % (Manual) 14.0 L (25-45) % Monocytes % (Manual) 11.0 (2-11) % Neutrophils # (Manual) 6450 H (7787-2563) /uL Nucleated RBCs 26 H ( - 0) #/Diff Hypersegmented Neuts 1+ RBC Morphology See below Polychromasia 1+ H Anisocytosis 4+ H Schistocytes 3+ H PT 12.5 (9.4-12.5) SECONDS INR 1.1 (0.9-1.3) Sodium 131 L (137-145) mmol/L Potassium 4.0 (3.4-5.1) mmol/L Chloride 96 L (98-107) mmol/L Carbon Dioxide 28 (22-32) mmol/L BUN 12 (7-17) mg/dL Creatinine 0.89 (0.52-1.04) mg/dL Estimated GFR > 60 (>60) mL/min BUN/Creatinine Ratio 13.5 (6-22) Glucose 110 H (70-99) mg/dL Lactate 1.7 (0.7-2.1) mmol/L Calcium 9.6 (8.4-10.2) mg/dL Total Bilirubin 2.5 H (0.2-1.3) mg/dL AST 61 H (14-36) IU/L ALT 97 H (<35) IU/L Alkaline Phosphatase 82 (38-126) U/L Troponin I 0.015 (0.01-0.034) ng/mL NT-Pro-B Natriuret Pep 450 H (<125) pg/mL Total Protein 6.8 (6.3-8.2) g/dL Albumin 4.5 (3.5-5.0) g/dL Globulin 2.3 (1.7-4.1) g/dL Albumin/Globulin Ratio 2.0 (1.0-2.8) Blood Type B Positive Antibody Screen Negative Crossmatch See Detail Imaging Data Chest x-ray: Radiologist's Impression: [address] [address] XRay Report Signed Patient: Gayatri Fabian MR#: [id number] : 1955 Acct:[id number] Age/Sex: 69 / F Date of Service: 05/30/25 Loc: ED Accession Number: [id number] Procedure: XR chest 1V Ordering Provider: Piter Marie D.O. PROCEDURE: XR CHEST 1V INDICATIONS: Shortness of breath TECHNIQUE: One view of the chest was acquired. COMPARISON: [facility], CR, XR CHEST 1V, 05/02/2025, 12:43. [facility], CR, XR CHEST 1V, 03/23/2025, 14:46. FINDINGS: Surgical changes and devices: Left chest wall port tip projects over the cavoatrial junction. Lungs and pleura: Left upper lobe nodule is unchanged from prior. No consolidation. Mediastinum: Mediastinal contours appear normal. Heart size is normal. Bones and chest wall: No suspicious bony lesions. Overlying soft tissues appear unremarkable. IMPRESSION: No acute cardiopulmonary abnormality is seen. CT scan - abdomen/pelvis: Radiologist's Impression: [address] [address] [address] Scan Report Signed Patient: Gayatri Fabian MR#: [id number] : 1955 Acct:[id number] Age/Sex: 69 / F Date of Service: 05/30/25 Loc: ED Accession Number: [id number] Procedure: CT angio Abd/Pel GI Bleed Ordering Provider: Piter Marie D.O. PROCEDURE: CT ANGIO ABD/PEL GI BLEED INDICATIONS: gi bleed TECHNIQUE: After the administration of intravenous contrast, 2.5 mm thick sections acquired from the diaphragm to the symphysis. 10 mm maximum-intensity projection (MIP) reformats were then acquired. For radiation dose reduction, the following was used: automated exposure control. COMPARISON: [facility], CT, CT CHEST ABDOMEN PELVIS WITH CONTRAST, 05/26/2025, 14:34. FINDINGS: Image Quality: Diagnostic. Abdominal aorta: No aortic aneurysm or evidence of acute aortic syndrome. Mesenteric arteries: Patent without hemodynamically significant stenosis. Renal arteries: Patent without hemodynamically significant stenosis. OTHER: Lower Chest: No significant findings. Liver: Presumed hepatic hemangioma is unchanged. Additional subcentimeter hypoattenuating lesions are too small to characterize by CT.. Gallbladder: No radiopaque gallstones or wall thickening. Biliary ducts: No biliary dilation. Pancreas: No ductal dilation. Spleen: Size is within normal limits. Adrenal Glands: No adrenal nodules. Kidneys and Ureters: No hydronephrosis. Multiple low-attenuation foci most consistent cysts. Stomach and Bowel: Normal colonic caliber, without significant wall thickening. Peritoneum: No abnormal intraperitoneal fluid. No free air. Ventral Wall: No hernia. Abdominal Nodes: No retroperitoneal or mesenteric adenopathy by size criteria. Vessels: Aorta and inferior vena cava are normal in size. PELVIS: Pelvic Organs: Unremarkable. Bladder: Unremarkable. Pelvic Nodes: No enlarged lymph nodes. Miscellaneous: No inguinal hernias are seen. Bones: No aggressive osseous abnormality. IMPRESSION: Aorta as well as mesenteric vessels are widely patent. No contrast extravasation within the bowel to suggest site of focal hemorrhage. MDM Narrative Medical decision making narrative: Vital signs, nurse triage note, medication list, previous ER visits, and all imaging studies reviewed. Fecal occult blood negative. CTA showed the aorta as well as mesenteric vessels are widely patent. No contrast extravasation within the bowel to suggest site of focal hemorrhage. Chest x-ray showed no acute process. Patient given 2 units packed red blood cell. Hemoglobin 6.7. Hematocrit 20 white count 8.6 platelet 140 INR 1.1. Sodium 131. Chloride 96 glucose 110 T bili 2.5 AST 61 ALT 97 BNP 450. Case discussed with Dr. Gregorio who has graciously accepted the patient for inpatient admission. Differential diagnosis diverticular bleed, hemorrhoids, cancer related anemia. Discharge Plan Departure Patient Disposition: Admitted As Inpatient Clinical Impression: Anemia Qualifiers: Anemia type: unspecified type Qualified Code(s): D64.9 - Anemia, unspecified Admit Date/Time: 05/31/25 00:14 Admit Provider: Richard Gregorio
[2025-05-30 20:19] LABS: INR 1.1 (0.9-1.3); Prothrombin Time 12.5 SECONDS (9.4-12.5)
[2025-05-30 20:22] LABS: Mean Corpuscular HGB Conc 33.4 % (30-36); Mean Corpuscular Hemoglobin 35.9 PG (26-34); Mean Corpuscular Volume 107.4 fL (80-100); Platelet Count 142 X10^3/uL (150-400)
[2025-05-30 20:23] LABS: Add Manual Diff / Slide Review YES
[2025-05-30 20:24] LABS: Hematocrit 20.0 % (36-46); Hemoglobin 6.7 g/dL (12.0-16.0)
[2025-05-30 20:33] LABS: Alanine Aminotransferase 97 IU/L (<35); Albumin 4.5 g/dL (3.5-5.0); Albumin Globulin Ratio 2.0 (1.0-2.8); Alkaline Phosphatase 82 U/L (38-126); Blood Urea Nitrogen 12 mg/dL (7-17); Calcium 9.6 mg/dL (8.4-10.2); Carbon Dioxide 28 mmol/L (22-32); Chloride 96 mmol/L (98-107); Estimated Glomerular Filt Rate > 60 mL/min (>60); Globulin 2.3 g/dL (1.7-4.1); Glucose 110 mg/dL (70-99); HEMOLYSIS < 15 (0-50); Lactate (Lactic Acid) 1.7 mmol/L (0.7-2.1); Potassium 4.0 mmol/L (3.4-5.1); Sodium 131 mmol/L (137-145); Total Protein 6.8 g/dL (6.3-8.2)
[2025-05-30 20:36] LABS: Anisocytosis 4+; Hypersegmented Neutrophils 1+; Lymphocytes Percent Manual 14.0 % (25-45); Monocytes Percent Manual 11.0 % (2-11); Neutrophils Absolute Manual 6450 /uL (3000-5900); Polychromasia 1+; Schistocytes 3+; Segmented Neutrophils Percent 75.0 % (38-70); Total Cells Counted 100
[2025-05-30 20:45] LABS: NT-proBNP (BNP-Adult 18+) 450 pg/mL (<125); Troponin I 0.015 ng/mL (0.01-0.034)
--- NOTE | 2025-05-30 22:46 | DI.CT.S_ITS ---
PROCEDURE: CT ANGIO ABD/PEL GI BLEED INDICATIONS: gi bleed TECHNIQUE: After the administration of intravenous contrast, 2.5 mm thick sections acquired from the diaphragm to the symphysis. 10 mm maximum-intensity projection (MIP) reformats were then acquired. For radiation dose reduction, the following was used: automated exposure control. COMPARISON: [facility], CT, CT CHEST ABDOMEN PELVIS WITH CONTRAST, 05/26/2025, 14:34. FINDINGS: Image Quality: Diagnostic. Abdominal aorta: No aortic aneurysm or evidence of acute aortic syndrome. Mesenteric arteries: Patent without hemodynamically significant stenosis. Renal arteries: Patent without hemodynamically significant stenosis. OTHER: Lower Chest: No significant findings. Liver: Presumed hepatic hemangioma is unchanged. Additional subcentimeter hypoattenuating lesions are too small to characterize by CT.. Gallbladder: No radiopaque gallstones or wall thickening. Biliary ducts: No biliary dilation. Pancreas: No ductal dilation. Spleen: Size is within normal limits. Adrenal Glands: No adrenal nodules. Kidneys and Ureters: No hydronephrosis. Multiple low-attenuation foci most consistent cysts. Stomach and Bowel: Normal colonic caliber, without significant wall thickening. Peritoneum: No abnormal intraperitoneal fluid. No free air. Ventral Wall: No hernia. Abdominal Nodes: No retroperitoneal or mesenteric adenopathy by size criteria. Vessels: Aorta and inferior vena cava are normal in size. PELVIS: Pelvic Organs: Unremarkable. Bladder: Unremarkable. Pelvic Nodes: No enlarged lymph nodes. Miscellaneous: No inguinal hernias are seen. Bones: No aggressive osseous abnormality. IMPRESSION: Aorta as well as mesenteric vessels are widely patent. No contrast extravasation within the bowel to suggest site of focal hemorrhage. Dictated by: Rubi Munson M.D. on 05/30/2025 at 23:25 Approved by: Rubi Munson M.D. on 05/30/2025 at 23:28
[2025-05-31] VITALS (9 sets, daily range): BP systolic 128–176; BP diastolic 58–85; PULSE 70–93; RESP 13–20; TEMP 35.9–37; O2SAT 91–94
[2025-05-31 06:01] LABS: Add Manual Diff / Slide Review NO; Hematocrit 28.5 % (36-46); Hemoglobin 9.9 g/dL (12.0-16.0); Lymphocytes Absolute Auto 1700 /uL (1100-4500); Mean Corpuscular HGB Conc 34.7 % (30-36); Mean Corpuscular Hemoglobin 32.8 PG (26-34); Mean Corpuscular Volume 94.8 fL (80-100); Platelet Count 120 X10^3/uL (150-400)
[2025-05-31 06:02] LABS: Blood Urea Nitrogen 10 mg/dL (7-17); Calcium 9.6 mg/dL (8.4-10.2); Carbon Dioxide 28 mmol/L (22-32); Chloride 99 mmol/L (98-107); Estimated Glomerular Filt Rate > 60 mL/min (>60); Glucose 78 mg/dL (70-99); HEMOLYSIS < 15 (0-50); Potassium 3.4 mmol/L (3.4-5.1); Sodium 133 mmol/L (137-145)
--- NOTE | 2025-05-31 06:15 | PM.HP.1 ---
History of Present Illness History of Present Illness Date Patient Seen: 05/31/25 Time Patient Seen: 06:16 Chief complaint: Sob/Eye issues Narrative: 69-year-old female with past medical history of lung cancer on chemotherapy, chronic respiratory failure requiring 2 L of oxygen per nasal cannula, hypertension anxiety and on chronic Eliquis presents with complaint of shortness of breath and fatigue. Per the patient's report over the last few days the patient has progressive increasing shortness of breath and fatigue. The patient also noted that her eyes are bloodshot and denies any alcohol intake. The patient also denies any GI bleeding denies any nausea, vomiting, diarrhea, abdominal pain, fever, chills, chest pain. The patient states that she had an endoscopy and colonoscopy a year ago and was reported to be negative. In the emergency room, the patient was hemodynamically stable. However labs shows a hemoglobin 6.7. Of note in April it was roughly 11-12. Other labs were relatively benign. FOBT was negative for any blood. CT abdomen pelvics shows no acute finding to explain anemia. Due to the severe anemia requiring blood transfusion and symptomatic our ER physician request that we admit the patient to observation and monitor overnight after transfusion. [facility] Medical History (Updated 05/31/25 @ 00:15 by Piter Marie DO) MARI (generalized anxiety disorder) Acute hypoxic respiratory failure Pneumonitis Pulmonary embolism Localized swelling, mass and lump, neck IFG (impaired fasting glucose) Cataracts, bilateral (~2018) Fibroids (~2008) Thyroid nodule (~2022) Hyperparathyroidism Surgical History Anesthesia S/P thyroid biopsy (~2021) History of left knee surgery (~2018) History of colonoscopy (~2013) History of lobectomy of lung (~2010) History of right knee surgery (~2005) History of carpal tunnel release (~2000) Family History Father Parkinson's disease Mother Parkinson's disease Osteoporosis Uterine cancer Grandfather Cancer Grandmother History of heart disease Grandfather History of heart disease Grandmother History of heart disease Social History household members: none Smoking Status: Former smoker alcohol intake: never Meds Home Medications and Allergies Home Medications ?Medication ?Instructions ?Recorded ?Confirmed ?Type acetaminophen 500 mg tablet 500 mg PO Q6H PRN pain (scale 03/16/24 05/31/25 History (Tylenol Extra Strength) score 1-3) cholecalciferol (vitamin D3) 25 25 mcg PO DAILY 03/16/24 05/31/25 History mcg (1,000 unit) capsule multivitamin 1 tab PO DAILY 03/16/24 05/31/25 History vit C 90 mg-D3 3.15 mcg-E 3.35 tab PO 03/16/24 05/02/25 History [id number]-vawnsosjij 65 mg chew tablet (Airborne Vits Zinc Elderberry) ondansetron 4 mg disintegrating 4 mg translingual Q6H PRN nausea 07/28/24 05/31/25 Rx tablet and vomiting #90 tabs amlodipine 5 mg tablet 5 mg PO DAILY #90 tabs 10/25/24 05/31/25 Rx Disabled Parking Permit 1 ea Not Applicable DAILY #1 ea 03/07/25 05/31/25 Rx apixaban 2.5 mg tablet (Eliquis) 2.5 mg PO BID 03/07/25 05/31/25 History folic acid 1 mg tablet 1 mg PO DAILY 03/07/25 05/31/25 History dapsone 100 mg tablet 100 mg PO DAILY taken daily 05/02/25 05/31/25 History w/prednisone therapy; ordered by oncol mycophenolate mofetil 500 mg tablet See Rx Instructions PO BID #120 05/05/25 05/31/25 Rx tabs buspirone 10 mg tablet 10 mg PO BID #60 tabs 05/08/25 05/31/25 Rx lorazepam 0.5 mg tablet 0.5 mg PO TID PRN anxiety #30 tabs 05/23/25 05/31/25 Rx alprazolam 0.25 mg tablet 0.125 mg PO ONCE PM PRN insomnia 05/31/25 05/31/25 History prednisone 20 mg tablet 40 mg PO DAILY 05/31/25 05/31/25 History Allergies Allergy/AdvReac Type Severity Reaction Status Date / Time albuterol Allergy Severe Difficulty Verified 05/02/25 13:26 Breathing alprazolam AdvReac Intermediate jittery Verified 05/02/25 13:26 Sulfa (Sulfonamide AdvReac Rash Verified 05/02/25 13:26 Antibiotics) Review of Systems Review of Systems ROS: Yes All systems reviewed with the patient and are negative except as otherwise documented Exam Vital Signs (past 8 hours): - 05/30/25 22:24 05/30/25 22:27 05/30/25 22:27 Temperature 97.8 F Pulse Rate 76 79 Respiratory Rate 18 25 H Blood Pressure 166/78 H 166/78 H Pulse Oximetry 91 Oxygen Delivery Method Oxygen Flow Rate 05/30/25 22:30 05/30/25 22:30 05/30/25 23:19 Temperature Pulse Rate 75 83 Respiratory Rate 16 Blood Pressure 152/69 H Pulse Oximetry 91 86 L Oxygen Delivery Method Nasal Cannula Oxygen Flow Rate 2 05/30/25 23:30 05/31/25 00:16 05/31/25 00:29 Temperature 98.6 F 98.4 F Pulse Rate 80 78 77 Respiratory Rate 13 13 17 Blood Pressure 165/77 H 176/78 H Pulse Oximetry 91 Oxygen Delivery Method Nasal Cannula Oxygen Flow Rate 2 05/31/25 00:31 05/31/25 00:44 05/31/25 00:55 Temperature 97.0 F L 97.0 F L Pulse Rate 93 H 93 H Respiratory Rate 18 18 Blood Pressure 163/85 H 163/85 H Pulse Oximetry 93 Oxygen Delivery Method Nasal Cannula Oxygen Flow Rate 2 05/31/25 03:15 Temperature 97.2 F L Pulse Rate 70 Respiratory Rate 16 Blood Pressure 157/70 H Pulse Oximetry Oxygen Delivery Method Oxygen Flow Rate Oxygen Delivery Method Nasal Cannula Oxygen Flow Rate 2 Narrative Exam Narrative: Physical Exam: GENERAL: The patient is not in any acute distressed. Awake and alert. HEENT: Nonicteric sclerae, PERRLA, EOMI. Oropharynx clear. Moist mucous membranes. Conjunctivae appear well perfused. HEART: Regular rate and rhythm without murmurs. No lower extremities edema. LUNGS: Clear to auscultation bilaterally. No wheezing, crackles or rhonchi ABDOMEN: Soft, positive bowel sounds, nontender. SKIN: No rash, no excessive bruising, petechiae, or purpura. NEUROLOGIC: AxO x 3. Cranial nerves II-XII intact without motor/sensory deficit. Objective Labs 05/31/25 05:17 05/31/25 05:17 Labs: Laboratory Results - last 24 hr 05/30/25 05/30/25 05/31/25 19:54 20:40 05:17 WBC 8.6 8.5 RBC 1.86 L 3.01 L Hgb 6.7 L* 9.9 L Hct 20.0 L* 28.5 L MCV 107.4 H 94.8 D MCH 35.9 H 32.8 MCHC 33.4 34.7 RDW 29.0 H 24.5 H Plt Count 142 L 120 L Neut % (Auto) Not Reportable 66.7 Lymph % (Auto) Not Reportable 19.9 L Crosby % (Auto) Not Reportable 12.9 Eos % (Auto) Not Reportable 0.4 L Baso % (Auto) Not Reportable 0.1 Neut # (Auto) 5700 Lymph # (Auto) Not Reportable 1700 [place] # (Auto) Not Reportable 1100 H Eos # (Auto) 0 Baso # (Auto) Not Reportable 0 Total Counted 100 Seg Neutrophils % 75.0 H Lymphocytes % (Manual) 14.0 L Monocytes % (Manual) 11.0 Neutrophils # (Manual) 6450 H Nucleated RBCs 26 H Hypersegmented Neuts 1+ RBC Morphology See below Polychromasia 1+ H Anisocytosis 4+ H Schistocytes 3+ H PT 12.5 INR 1.1 Sodium 131 L 133 L Potassium 4.0 3.4 Chloride 96 L 99 Carbon Dioxide 28 28 BUN 12 10 Creatinine 0.89 0.79 Estimated GFR > 60 > 60 BUN/Creatinine Ratio 13.5 12.7 Glucose 110 H 78 Lactate 1.7 Calcium 9.6 9.6 Total Bilirubin 2.5 H AST 61 H ALT 97 H Alkaline Phosphatase 82 Troponin I 0.015 NT-Pro-B Natriuret Pep 450 H Total Protein 6.8 Albumin 4.5 Globulin 2.3 Albumin/Globulin Ratio 2.0 Blood Type B Positive Antibody Screen Negative Crossmatch See Detail Assessment & Plan Assessment & Plan narrative: Symptomatic severe anemia. Admit the patient to medical telemetry under observation. Of note there is no clear signs of bleeding as CT scan of the abdomen pelvic with contrastshows no acute bleeding. FOBT also done and negative. Patient denies any known GI bleeding symptoms. Questionable this could be related to underlying cancer and or chemotherapy induced. Patient's hemoglobin now 6.7 and 1 month ago was 11-12. Patient had 2 units of packed red blood cells ordered in the ER. Will transfuse and monitor for any bleeding. Repeat hemoglobin after transfusion. Ongoing lung cancer on chemotherapy. Patient will need to follow-up as outpatient for ongoing therapy. Mild hyponatremia. Encourage p.o. intake as this is likely dehydration. Sodium 131. Monitor for now. On chronic anticoagulant Eliquis. Patient denies any history of atrial fibrillation. Will continue Eliquis for now and monitor for any bleeding. Anxiety. Resume home medication. DVT prophylaxis Eliquis. CODE STATUS full code Disposition likely home in 1 to 2 days - As the provider of this telehealth evaluation, requested by the patient's evaluating physician, I attest that I introduced myself to the patient, provided my credentials and determined that telemedicine via a real-time, 2 way interactive audio and video platform is an appropriate and effective means of providing this service. - I reviewed the patient's chart and had a discussion with the member of the patient's treatment team. - The patient and I mutually agreed with continuation of this evaluation via telemedicine. The patient consented for the telemedicine evaluation. - This virtual encounter was taken place from [place] by Dr. Richard Gregorio. The patient was evaluated at [facility]. The encounter was approximately 35 minutes. The nurse was present during the entire time of the encounter and was able to move the stethoscope in appropriate directions. Time-Based Coding :: [TOTAL MINUTES] spent with patient and on the chart (including review of chart, obtaining history, exam, reviewing outside data, placing orders, documenting exam and treatment plan, and counseling patient) on [DATE].
[2025-05-31 06:18] LABS: Anisocytosis 3+; Macrocytosis 2+; Microcytosis 1+; Spherocytes 1+
[2025-05-31 06:19] LABS: Polychromasia 1+
--- NOTE | 2025-05-31 08:02 | PM.HP.1 ---
History of Present Illness History of Present Illness Chief complaint: Sob/Eye issues Narrative: From night doctor: 69-year-old female with past medical history of lung cancer on chemotherapy, chronic respiratory failure requiring 2 L of oxygen per nasal cannula, hypertension anxiety and on chronic Eliquis presents with complaint of shortness of breath and fatigue. Per the patient's report over the last few days the patient has progressive increasing shortness of breath and fatigue. The patient also noted that her eyes are bloodshot and denies any alcohol intake. The patient also denies any GI bleeding denies any nausea, vomiting, diarrhea, abdominal pain, fever, chills, chest pain. The patient states that she had an endoscopy and colonoscopy a year ago and was reported to be negative. In the emergency room, the patient was hemodynamically stable. However labs shows a hemoglobin 6.7. Of note in April it was roughly 11-12. Other labs were relatively benign. FOBT was negative for any blood. CT abdomen pelvics shows no acute finding to explain anemia. Due to the severe anemia requiring blood transfusion and symptomatic our ER physician request that we admit the patient to observation and monitor overnight after transf Summary: She feels weak and shaky. She was swelling of the conjunctiva of both eyes. She lives alone in [place]. [facility] Medical History MARI (generalized anxiety disorder) Acute hypoxic respiratory failure Pneumonitis Pulmonary embolism Localized swelling, mass and lump, neck IFG (impaired fasting glucose) Cataracts, bilateral (~2018) Fibroids (~2008) Thyroid nodule (~2022) Hyperparathyroidism Surgical History Anesthesia S/P thyroid biopsy (~2021) History of left knee surgery (~2018) History of colonoscopy (~2013) History of lobectomy of lung (~2010) History of right knee surgery (~2005) History of carpal tunnel release (~2000) Family History Father Parkinson's disease Mother Parkinson's disease Osteoporosis Uterine cancer Grandfather Cancer Grandmother History of heart disease Grandfather History of heart disease Grandmother History of heart disease Social History household members: none Smoking Status: Former smoker alcohol intake: never Meds Home Medications and Allergies Home Medications ?Medication ?Instructions ?Recorded ?Confirmed ?Type acetaminophen 500 mg tablet 500 mg PO Q6H PRN pain (scale 03/16/24 05/31/25 History (Tylenol Extra Strength) score 1-3) cholecalciferol (vitamin D3) 25 25 mcg PO DAILY 03/16/24 05/31/25 History mcg (1,000 unit) capsule multivitamin 1 tab PO DAILY 03/16/24 05/31/25 History vit C 90 mg-D3 3.15 mcg-E 3.35 1 tab PO DAILY 03/16/24 05/31/25 History [id number] 65 mg chew tablet (Airborne Vits Zinc Elderberry) ondansetron 4 mg disintegrating 4 mg translingual Q6H PRN nausea 07/28/24 05/31/25 Rx tablet and vomiting #90 tabs amlodipine 5 mg tablet 5 mg PO DAILY #90 tabs 10/25/24 05/31/25 Rx Disabled Parking Permit 1 ea Not Applicable DAILY #1 ea 03/07/25 05/31/25 Rx apixaban 2.5 mg tablet (Eliquis) 2.5 mg PO BID 03/07/25 05/31/25 History folic acid 1 mg tablet 1 mg PO DAILY 03/07/25 05/31/25 History dapsone 100 mg tablet 100 mg PO DAILY taken daily 05/02/25 05/31/25 History w/prednisone therapy; ordered by oncol buspirone 10 mg tablet 10 mg PO BID #60 tabs 05/08/25 05/31/25 Rx lorazepam 0.5 mg tablet 0.5 mg PO TID PRN anxiety #30 tabs 05/23/25 05/31/25 Rx alprazolam 0.25 mg tablet 0.125 mg PO ONCE PM PRN insomnia 05/31/25 05/31/25 History mycophenolate mofetil 500 mg tablet 1,000 mg PO BID 05/31/25 05/31/25 History prednisone 20 mg tablet 40 mg PO DAILY 05/31/25 05/31/25 History Allergies Allergy/AdvReac Type Severity Reaction Status Date / Time albuterol Allergy Severe Difficulty Verified 05/02/25 13:26 Breathing alprazolam AdvReac Intermediate jittery Verified 05/02/25 13:26 Sulfa (Sulfonamide AdvReac Rash Verified 05/02/25 13:26 Antibiotics) Review of Systems Review of Systems Narrative: All else reviewed and otherwise unremarkable except as noted in the history and physical. Exam Vital Signs (past 8 hours): - 05/31/25 00:16 05/31/25 00:29 05/31/25 00:31 Temperature 98.6 F 98.4 F 97.0 F L Pulse Rate 78 77 93 H Respiratory Rate 13 17 18 Blood Pressure 165/77 H 176/78 H 163/85 H Pulse Oximetry 93 Oxygen Delivery Method Oxygen Flow Rate 2 05/31/25 00:44 05/31/25 00:55 05/31/25 03:15 Temperature 97.0 F L 97.2 F L Pulse Rate 93 H 70 Respiratory Rate 18 16 Blood Pressure 163/85 H 157/70 H Pulse Oximetry Oxygen Delivery Method Nasal Cannula Oxygen Flow Rate 05/31/25 03:15 Temperature Pulse Rate Respiratory Rate Blood Pressure Pulse Oximetry 93 Oxygen Delivery Method Oxygen Flow Rate 2 Oxygen Delivery Method Nasal Cannula Oxygen Flow Rate 2 Narrative Exam Narrative: NAD, alert and oriented, fluent speech, calm. She was bilateral conjunctivitis and chemosis. She appeared shaky. Normocephalic skull, EOMI, anicteric sclera, symmetric pupils. Oropharynx unremarkable, no droop. Neck supple, midline trachea, no adenopathy. Lungs clear, normal rate and effort. Heart regular, no murmur gallop or rub. Abdomen is soft, non distended and non tender. Extremities are free of edema. Skin is free of rash or lesions. Joints are not swollen or deformed. Judgment appears to be normal. Objective ECG Impression: Intervals [place] Rate: 76 P: 59 NV: 122 QRS: 51 QRSD: 128 T: 48 QT: 390 QTc: 438 Interpretive Statements Normal sinus rhythm Right bundle branch block Labs 05/31/25 05:17 05/31/25 05:17 Labs: Laboratory Results - last 24 hr 05/30/25 05/30/25 05/31/25 19:54 20:40 05:17 WBC 8.6 8.5 RBC 1.86 L 3.01 L Hgb 6.7 L* 9.9 L Hct 20.0 L* 28.5 L MCV 107.4 H 94.8 D MCH 35.9 H 32.8 MCHC 33.4 34.7 RDW 29.0 H 24.5 H Plt Count 142 L 120 L Neut % (Auto) Not Reportable 66.7 Lymph % (Auto) Not Reportable 19.9 L [place] % (Auto) Not Reportable 12.9 Eos % (Auto) Not Reportable 0.4 L Baso % (Auto) Not Reportable 0.1 Neut # (Auto) 5700 Lymph # (Auto) Not Reportable 1700 [place] # (Auto) Not Reportable 1100 H Eos # (Auto) 0 Baso # (Auto) Not Reportable 0 Total Counted 100 Seg Neutrophils % 75.0 H Lymphocytes % (Manual) 14.0 L Monocytes % (Manual) 11.0 Neutrophils # (Manual) 6450 H Nucleated RBCs 26 H Hypersegmented Neuts 1+ Platelet Estimate Decreased on smear RBC Morphology See below See below Polychromasia 1+ H 1+ H Anisocytosis 4+ H 3+ H Microcytosis 1+ H Macrocytosis 2+ H Spherocytes 1+ H Schistocytes 3+ H PT 12.5 INR 1.1 Sodium 131 L 133 L Potassium 4.0 3.4 Chloride 96 L 99 Carbon Dioxide 28 28 BUN 12 10 Creatinine 0.89 0.79 Estimated GFR > 60 > 60 BUN/Creatinine Ratio 13.5 12.7 Glucose 110 H 78 Lactate 1.7 Calcium 9.6 9.6 Total Bilirubin 2.5 H AST 61 H ALT 97 H Alkaline Phosphatase 82 Troponin I 0.015 NT-Pro-B Natriuret Pep 450 H Total Protein 6.8 Albumin 4.5 Globulin 2.3 Albumin/Globulin Ratio 2.0 Blood Type B Positive Antibody Screen Negative Crossmatch See Detail Assessment & Plan Assessment & Plan narrative: 1. Symptomatic severe anemia. Admit the patient to medical telemetry under observation. Of note there is no clear signs of bleeding as CT scan of the abdomen pelvic with contrastshows no acute bleeding. FOBT also done and negative. Patient denies any known GI bleeding symptoms. Questionable this could be related to underlying cancer and or chemotherapy induced. Patient's hemoglobin now 6.7 and 1 month ago was 11-12. Patient had 2 units of packed red blood cells ordered in the ER. Will transfuse and monitor for any bleeding. Repeat hemoglobin after transfusion. 2. Ongoing lung cancer on chemotherapy. Patient will need to follow-up as outpatient for ongoing therapy. 3. Mild hyponatremia. Encourage p.o. intake as this is likely dehydration. Sodium 131. Monitor for now. 4. On chronic anticoagulant Eliquis. Patient denies any history of atrial fibrillation. Will continue Eliquis for now and monitor for any bleeding. 5. Anxiety. Resume home medication. PLAN: -monitor vital signs and hemoglobin. -monitor for evidence of rectal bleeding. -discuss eye findings and anemia with her oncologist. -social work consult. DVT prophylaxis Eliquis. CODE STATUS full code Disposition likely home in 1 to 2 days Time-Based Coding :: [TOTAL MINUTES] spent with patient and on the chart (including review of chart, obtaining history, exam, reviewing outside data, placing orders, documenting exam and treatment plan, and counseling patient) on [DATE].
[2025-05-31] MEDS: AMLODIPINE 5 MG TABLET PO (09:25)
[2025-05-31] MEDS: CHOLECALCIFEROL (VITAMIN D3) 1,000 UNIT TABLET 1000 UNIT PO (09:25)
[2025-05-31] MEDS: MULTIVITAMIN 1 TABLET 1 TAB PO (09:25)
[2025-05-31] MEDS: POTASSIUM CHLORIDE 20 MEQ TAB 40 MEQ PO (09:25)
[2025-05-31] MEDS: APIXABAN 5 MG TABLET 2.5 MG PO ×2 (09:25→21:57)
[2025-05-31] MEDS: FOLIC ACID 1 MG TABLET PO (09:25)
[2025-05-31] MEDS: ONDANSETRON 4 MG/2 ML INJ IV (09:33)
[2025-05-31] MEDS: MYCOPHENOLATE MOFETIL 500 MG TABLET 1000 MG PO ×2 (10:40→21:57)
--- NOTE | 2025-05-31 14:10 | CM.DANOTE ---
Addendum entered by JEAN Coy 05/31/25 15:00: Addendum: DCP discussed possible PT/OT orders with hospitalist who agrees; he placed orders for PT/OT eval. Pending recommendations. LEOPOLDO Ly Original Note: DCP Assessment Note: Pt is a 69yo female, resident of [place], is admitted for severe anemia. Pt lives in a house alone with her rocha lab, Roge. Pt's Primary Care Provider is Dr. Kayla Steiner and insurance is Medicare and [employer]. Reviewed chart and discussed with multidisciplinary team pt's medical status and initial discharge needs. DCP met w/patient at bedside; introduced self and role. Patient was found in bed, alert and oriented, cooperative with assessment. Present in the room is pt's friend, Claudia, who is visiting from [place] and willing to transport pt home when cleared (ph# [phone]). Pt confirmed living situation and being moderately independent at home but recently finding more difficulty in managing ADLs due to experiencing shortness of breath when doing ADLs. Pt expressed preference in discharge home with home health if available but also understands [facility] care might be necessary soon. Pt is currently open with [facility] (RN, OT only) and is prefers to remain with them if able to dc home with home health (consider adding HH Aide and WOOD STAINER for [facility] care planning). No PT/OT orders at this time, would benefit from recommendations for care plan development. WOOD STAINER provided Senior Resource guide and multiple contacts for private caregiving agencies. Also provided Medicare Choice List to review in case SNF Rehab will be recommended before dc home. Pt and friend discussed concerns for returning home alone without 24/7 care, inquired about pt's entitlement to in-home caregiving via late spouse's [employer] benefit. WOOD STAINER provided information and contact number for [employer] to inquire for more information (ph# [phone]) in obtaining pre-authorization for in-home caregiving. Plan: Anticipating dc home in 1-2 days when medically cleared, follow with [facility] (would probably need new orders), friend (Claudia) to transport. CM team will follow closely for coordination of discharge plans. LEOPOLDO Ly Discharge Planning/Care Management CM Discharge Assessment Start: 05/31/25 00:53 Freq: Status: Active Protocol: Document 05/31/25 13:50 MW (Rec: 05/31/25 14:10 MW [id number]) Discharge Planning Assessment Assigned Discharge JEAN Jim Filter Cleaner DPOA/Assigned Arash Araujo, Son Designee Name Contact Information [phone] Advance Directives? No History Provided By Patient Has Patient been No admitted in last 30 days? Prior Living House Arrangements Household Members none Type of Drives own vehicle transporation used prior to admit Independent with ADL No 's Is patient alert and Yes oriented? Needs Assistance Bathing,Grooming,Meal Prep,Home Chores / Shopping With Comment I get winded after doing most things around the house, this has been happening for the past 2 months or so. Caregiver for No Another Community Services Home Health Aid,Home Health Nurse used prior to admission: DME Already Rented / Wheelchair,FWW / Walker Owned Patient/Family Home with Home Health Preference If patient plan is Yes home with home health: Has signed face to face form been completed? Medicare Choice List Yes Provided Whiteboard Updated Yes in Patient Room with name and ext. # of Foot Setter Comment [phone] Review Status In Process Please Provide Date 05/31/25 Initial DC Assessment Was Performed Next Review Type Continued Stay Review
[2025-05-31] MEDS: prednisoLONE OPHTH SUSP 1 DROPS EYE-BOTH ×2 (16:08→21:58)
[2025-05-31] MEDS: OLOPATADINE 0.1% OPHTH DROPS 5 ML 1 DROPS EYE-BOTH ×2 (16:08→21:58)
--- NOTE | 2025-05-31 16:40 | PT.IIE ---
Current Diagnoses Anemia, unspecified (05/31/25) Surgical History (Last Reviewed 05/31/25 @ 08:02 by Quincy Dewey MD) Anesthesia History of carpal tunnel release (~2000) History of colonoscopy (~2013) History of left knee surgery (~2018) History of lobectomy of lung (~2010) History of right knee surgery (~2005) S/P thyroid biopsy (~2021) Medical History (Last Reviewed 05/31/25 @ 08:02 by Quincy Dewey MD) Acute hypoxic respiratory failure Cataracts, bilateral (~2018) Fibroids (~2008) MARI (generalized anxiety disorder) Hyperparathyroidism IFG (impaired fasting glucose) Localized swelling, mass and lump, neck Pneumonitis Pulmonary embolism Thyroid nodule (~2022) Physical Therapy Inpatient Evaluation/Re-Eval M1 PT/OT-IP Prior Functional Status Start: 05/31/25 17:26 Freq: NEEDED Status: Active Protocol: Document 05/31/25 16:40 AB (Rec: 05/31/25 17:50 AB [id number]) Medical Review Prior Functional Status Medical History Yes Reviewed Communication able to make needs known Mobility and Gait pt stated that she was modified independent with all mobilities and ambulation without AD but started using a 4WW ~ 1 week ago due to increase fatigue; pt stated that she started with [facility] and has a nurse and OT that comes in uses home O2 at 2L/min Social History Household Members none Living Arrangements House Number of Floors ( Two Floors Floors) Number of Stairs To pt stays on main level of the house Enter/Railing? has 9 steps B rails to enter the house Home Environment Standard Height Toilet,Tub/Shower Home Equipment Four Wheel Walker,Shower Seat with Backrest,Hand Held Shower,Grab Bars In Shower M2 PT-IP Current Condition Start: 05/31/25 17:26 Freq: NEEDED Status: Active Protocol: Document 05/31/25 16:40 AB (Rec: 05/31/25 17:50 AB [id number]) Physical Therapy Current Condition Current Condition Evaluation Date 05/31/25 Treatment Diagnosis anemia; lung CA; generalized weakness Onset Date 05/31/25 M3 PT-IP Subjective Start: 05/31/25 17:26 Freq: NEEDED Status: Active Protocol: Document 05/31/25 16:40 AB (Rec: 05/31/25 17:50 AB [id number]) Subjective Physical Therapy Visit Type Type Initial Evaluation Visit Start Time 16:40 Visit Stop Time 17:20 Number of BARBER SHOP MANAGER Visits 0 Physical Therapy Visit Comments Patient Comments able to make needs known Therapy Pain Assessment Location Bilateral Eye Scale Used pain scale not stated Pain Management Distraction Techniques M4 PT-IP Mobility and Gait Start: 05/31/25 17:26 Freq: NEEDED Status: Active Protocol: Document 05/31/25 16:40 AB (Rec: 05/31/25 17:50 AB [id number]) PT-Bed Mobility Assessment Supine to Sit Supine to Sit Standby Assistance,Bedrails Sit to Supine Sit to Supine Standby Assistance,Bedrails PT-Transfer Assessment Sit to and From Stand Sit to and from Contact Guard Assistance,1 Person Assistance,Use of Stand Upper Extremities Equipment Transfer Assistive Gait Belt,Front Wheeled Walker Device Orthotic/Prosthetic No Devices or Brace: Transfers Transfer Destination Bed,Chair Transfer Technique ambulated Transfer Ability Level of Assist Contact Guard Assistance,1 Person Assistance,Use of Upper Extremities Comments Mobility Comments pt sitting on the chair and agreeable to do PT. pt without O2 on. obtained PLOF and home set up. BP: 139/81 WI: 86 pt at RA: O2 sat: 90-91%. O2 sat decreased to 88% after MMT and with (+) SOB. provided pt with 2L/min O2. pt stated that she usually uses home O2 at 2L/min. O2 sat increased 92%. sit to stand from chair CGA and pt ambulated ~ 12 ft using FWW CGA. cued for deep breathing. O2 sat after ambulation: 93-94%. pt completed sit<>supine SBA with use of bed rail. (+) SOB. O2 sat: 91-92%. sit to stand from EOB CGA and ambulated more in room ~ 40 ft using FWW CGA to min A and cues for safety and proper use of FWW. (+) LOB requiring min A during ambulation. cued for deep breathing in between ambulation. pt sat back on chair. O2 sat: 93-94%. positioned pt on the chair. call light and table placed within reach. set up pt for dinner. Gait Assessment Gait Gait Assistance Contact Guard Assist,Minimum Assistance Required: Distance (Feet) 40 Able to Maintain Yes Weight Bearing Status During Gait Assistive Devices Assistive Device Gait Belt,Front Wheeled Walker Orthotic/Prosthetic No Devices or Brace: Gait Deviations General Gait Pattern Decreased Stride Length,Decreased Feet Clearance,Step- to Gait Factors Limiting Gait Function Factors Limiting Decreased Activity Tolerance,Decreased Strength,Pain, Gait Function Poor Balance,Poor Safety Awareness,Respiratory Distress PT-Balance Assessment Sitting Balance and Reactions Static Sitting Normal Balance Ability Dynamic Sitting Good Balance Ability Standing Balance and Reactions Static Standing Fair Balance Ability Dynamic Standing Fair Balance Ability Device Used FWW M5 PT-IP Objective Assessments Start: 05/31/25 17:26 Freq: NEEDED Status: Active Protocol: Document 05/31/25 16:40 AB (Rec: 05/31/25 17:50 AB [id number]) Orientation Orientation/Cognition Level of Alertness Alert Orientation Name,Place,Situation Language Function No Deficits Noted Ability Safety Awareness Decreased Safety Awareness Memory Description No Deficits Noted Gross Range of Motion Lower Extremity ROM Assessment Within Functional Limits Strength Lower Extremity Strength Assessment Within Functional Limits Muscle Tone Muscle Tone WNL Yes M6 PT-IP Treatment Start: 05/31/25 17:26 Freq: NEEDED Status: Active Protocol: Document 05/31/25 16:40 AB (Rec: 05/31/25 17:50 AB [id number]) Physical Therapy Treatment Education Education Provided Safety M7 PT-IP Assessment and Plan Start: 05/31/25 17:26 Freq: NEEDED Status: Active Protocol: Document 05/31/25 16:40 AB (Rec: 05/31/25 17:50 AB [id number]) PT Summary Assessment and Plan Potential Rehabilitation Fair Potential Status of Condition Evolving at Evaluation Summary Impairments Pain,ROM,Strength,Balance,Coordination,Sensation,Tone, Bed Mobility,Transfers,Gait,Activity Tolerance Assessment Summary pt is a 69 y/o F who is admitted for anemia. pt received blood transfusion in the ED. pt with dx of lung CA contributing to current level of function. pt requiring SBA for bed mobility, CGA for transfers and CGA to min A for ambulation using FWW with (+) LOB. Pt presents with decrease activity tolerance with (+) SOB. pt will require assistance at home. d/c plan depending on progress: SNF vs home with assist and HH services. will continue to assess. Goals Bed Mobility Goal Independent Transfer Goal Independent,Front Wheeled Walker Gait Goal Independent,Front Wheel Walker Gait Distance 50 Other Goals improve transfers and ambulation using LRAD/without AD ~ 100 ft SBA up/down 9 steps B rails SBA Days to Meet Goals 10 Frequency of Treatment Frequency Of Once a Day Treatment Treatment Plan Physical Therapy Bed Mobility Training,Transfer Training,Gait Training, Treatment Plan Therapeutic Exercise,Balance Retraining,Discharge Planning,Hot or Cold Pack,Neuromuscular Re-ed, Coordination Retraining Precautions Other Precautions O2 sat Recommendations To Nursing Amount of Assist 1 Person Assist Needed Discharge Recommendations PT Discharge Home with Assistance,Home with 08/06 Assist Available, Recommendations Home Health,SNF Rehab,Home vs SNF Equipment Needed for FWW if not safe with 4WW/without AD Home Before Discharge Transportation Needs Private Vehicle at Discharge - PT assist 1
[2025-06-01 06:05] LABS: Add Manual Diff / Slide Review NO; Hematocrit 29.8 % (36-46); Hemoglobin 10.3 g/dL (12.0-16.0); Lymphocytes Absolute Auto 1000 /uL (1100-4500); Mean Corpuscular HGB Conc 34.6 % (30-36); Mean Corpuscular Hemoglobin 33.2 PG (26-34); Mean Corpuscular Volume 95.9 fL (80-100); Platelet Count 148 X10^3/uL (150-400)
[2025-06-01 06:26] LABS: Anisocytosis 3+; Macrocytosis 2+; Microcytosis 1+; Polychromasia 1+; Schistocytes 1+; Spherocytes 1+
[2025-06-01 06:27] LABS: Blood Urea Nitrogen 13 mg/dL (7-17); Calcium 10.0 mg/dL (8.4-10.2); Carbon Dioxide 28 mmol/L (22-32); Chloride 102 mmol/L (98-107); Estimated Glomerular Filt Rate > 60 mL/min (>60); Glucose 78 mg/dL (70-99); HEMOLYSIS < 15 (0-50); Potassium 3.9 mmol/L (3.4-5.1); Sodium 133 mmol/L (137-145)
[2025-06-01] MEDS: APIXABAN 5 MG TABLET 2.5 MG PO (08:55)
[2025-06-01] MEDS: AMLODIPINE 5 MG TABLET PO (08:55)
[2025-06-01] MEDS: FOLIC ACID 1 MG TABLET PO (08:55)
[2025-06-01] MEDS: MULTIVITAMIN 1 TABLET 1 TAB PO (08:55)
[2025-06-01] MEDS: MYCOPHENOLATE MOFETIL 500 MG TABLET 1000 MG PO (08:56)
[2025-06-01] MEDS: CHOLECALCIFEROL (VITAMIN D3) 1,000 UNIT TABLET 1000 UNIT PO (08:56)
[2025-06-01] MEDS: prednisoLONE OPHTH SUSP 1 DROPS EYE-BOTH (08:57)
[2025-06-01] MEDS: OLOPATADINE 0.1% OPHTH DROPS 5 ML 1 DROPS EYE-BOTH (08:58)
[2025-06-01 09:17] VITALS: BP 136/61; PULSE 90; RESP 20; TEMP 36.3; O2SAT 94
--- NOTE | 2025-06-01 11:39 | P.DS_ITS ---
History of Present Illness History of Present Illness Chief complaint: Sob/Eye issues Narrative: From night doctor: 69-year-old female with past medical history of lung cancer on chemotherapy, chronic respiratory failure requiring 2 L of oxygen per nasal cannula, hypertension anxiety and on chronic Eliquis presents with complaint of shortness of breath and fatigue. Per the patient's report over the last few days the patient has progressive increasing shortness of breath and fatigue. The patient also noted that her eyes are bloodshot and denies any alcohol intake. The patient also denies any GI bleeding denies any nausea, vomiting, diarrhea, abdominal pain, fever, chills, chest pain. The patient states that she had an endoscopy and colonoscopy a year ago and was reported to be negative. In the emergency room, the patient was hemodynamically stable. However labs shows a hemoglobin 6.7. Of note in April it was roughly 11-12. Other labs were relatively benign. FOBT was negative for any blood. CT abdomen pelvics shows no acute finding to explain anemia. Due to the severe anemia requiring blood transfusion and symptomatic our ER physician request that we admit the patient to observation and monitor overnight after transf Summary: She feels weak and shaky. She was swelling of the conjunctiva of both eyes. She lives alone in [place]. Discharge Providers Provider Date of admission: 05/31/25 00:14 Discharge Date: 06/01/25 Primary care physician: Kayla Steiner DO Consults: 05/31/25 01:11 Consult to Dietitian, Adult Routine Comment: Reason For Exam: low appetite 05/31/25 14:36 Consult to Physical Therapy Evaluate & Treat Comment: Physician Instructions: Evaluate and Treat Discharge provider: Quincy Dewey MD Summary Hospital Course Discharge Diagnosis: 1. Symptomatic severe anemia. 2. Ongoing lung cancer stage 4 on chemotherapy. 3. Mild hyponatremia. 4. On chronic anticoagulant Eliquis. 5. Anxiety. 6. Pedal edema. 7. Bilateral uveitis and chemosis. Hospital Course: She was admitted with a anemia without evidence of rectal bleeding. She was given 2 units of packed cells. She was very weak on the 1st day in the hospital but improved overnight. She also has bilateral uveitis and chemosis. She was treated with prednisone eyedrops. I did share information with her oncologist who indicates that her eye issues are ongoing and followed by Ophthalmology. He recommended no other workup and she will be seen in Oncology next week. She does have some pedal edema, and leg elevation as advised. Status at Discharge Cognitive/behavioral status at discharge: oriented Functional status at discharge: independent ambulation Overall status at discharge: patient is back to baseline Time Spent with Patient Time spent: Greater than 30 minutes Exam Vital Signs (past 8 hours): - 06/01/25 09:17 Temperature 97.3 F L Pulse Rate 90 Respiratory Rate 20 Blood Pressure 136/61 Pulse Oximetry 94 Oxygen Flow Rate 2 Oxygen Delivery Method Nasal Cannula Oxygen Flow Rate 2 Narrative Exam Narrative: NAD, alert and oriented. Fluent speech. Lungs are clear, normal rate and effort. Heart is regular, no murmur gallop or rub. Abdomen is soft, non distended. Extremities are free of edema. Objective ECG Impression: Intervals [place] Rate: 76 P: 59 AL: 122 QRS: 51 QRSD: 128 T: 48 QT: 390 QTc: 438 Interpretive Statements Normal sinus rhythm Right bundle branch block Imaging Multiple studies:: Radiologist's impression: CXR: No acute cardiopulmonary abnormality is seen. CTAP: Aorta as well as mesenteric vessels are widely patent. No contrast extravasation within the bowel to suggest site of focal hemorrhage. Labs 06/01/25 05:29 06/01/25 05:29 Labs: Laboratory Results - last 24 hr 06/01/25 05:29 WBC 6.1 RBC 3.10 L Hgb 10.3 L Hct 29.8 L MCV 95.9 MCH 33.2 MCHC 34.6 RDW 29.5 H Plt Count 148 L Neut % (Auto) 70.6 Lymph % (Auto) 16.6 L Parke % (Auto) 12.4 Eos % (Auto) 0.3 L Baso % (Auto) 0.1 Neut # (Auto) 4300 Lymph # (Auto) 1000 L Parke # (Auto) 800 Eos # (Auto) 0 Baso # (Auto) 0 Platelet Estimate Decreased on smear RBC Morphology See below Polychromasia 1+ H Anisocytosis 3+ H Microcytosis 1+ H Macrocytosis 2+ H Spherocytes 1+ H Schistocytes 1+ H D Sodium 133 L Potassium 3.9 Chloride 102 Carbon Dioxide 28 BUN 13 Creatinine 0.87 Estimated GFR > 60 BUN/Creatinine Ratio 14.9 Glucose 78 Calcium 10.0 COUNT INCLUDES THE [facility] Medical History MARI (generalized anxiety disorder) Acute hypoxic respiratory failure Pneumonitis Pulmonary embolism Localized swelling, mass and lump, neck IFG (impaired fasting glucose) Cataracts, bilateral (~2018) Fibroids (~2008) Thyroid nodule (~2022) Hyperparathyroidism Surgical History Anesthesia S/P thyroid biopsy (~2021) History of left knee surgery (~2018) History of colonoscopy (~2013) History of lobectomy of lung (~2010) History of right knee surgery (~2005) History of carpal tunnel release (~2000) Family History Father Parkinson's disease Mother Parkinson's disease Osteoporosis Uterine cancer Grandfather Cancer Grandmother History of heart disease Grandfather History of heart disease Grandmother History of heart disease Social History household members: none Smoking Status: Former smoker alcohol intake: never Discharge Assessment & Plan Assessment and Plan Assessment: 1. Symptomatic severe anemia. 2. Ongoing lung cancer stage 4 on chemotherapy. Plan of Treatment: Stable for discharge home with close follow up with Oncology. Oncology is aware of her admission. Discharge Plan Discharge Plan Patient Disposition: Home Provider Discharge Comment: Stable for discharge. Discharge orders & Medications Prescriptions: New prednisolone acetate 1 % Drops,Suspension 1 drops EYE-BOTH QID Qty: 10 1RF Continued amlodipine 5 mg tablet 5 mg PO DAILY Qty: 90 3RF dapsone 100 mg tablet 100 mg PO DAILY buspirone 10 mg tablet 10 mg PO BID Qty: 60 5RF lorazepam 0.5 mg tablet 0.5 mg PO TID PRN (Reason: anxiety) Qty: 30 3RF alprazolam 0.25 mg tablet 0.125 mg PO ONCE PM PRN (Reason: insomnia) prednisone 20 mg tablet 40 mg PO DAILY mycophenolate mofetil 500 mg tablet 1,000 mg PO BID multivitamin Tablet 1 tab PO DAILY cholecalciferol (vitamin D3) 25 mcg (1,000 unit) capsule 25 mcg PO DAILY Airborne Vits Zinc Elderberry 90 mg-3.15 mcg- 3.35 mg-1 mg tablet,chewable 1 tab PO DAILY acetaminophen [Tylenol Extra Strength] 500 mg tablet 500 mg PO Q6H PRN (Reason: pain (scale score 1-3)) ondansetron 4 mg tablet,disintegrating 4 mg translingual Q6H PRN (Reason: nausea and vomiting) Qty: 90 0RF Eliquis 2.5 mg tablet 2.5 mg PO BID folic acid 1 mg tablet 1 mg PO DAILY Disabled Parking Permit 1 ea Not Applicable DAILY Qty: 1 0RF Follow up/Referrals: Kayla Steiner DO [Primary Care Provider, Family Practice] Diet/Activity/Treatments Diet: Regular Visit Report/Discharge Packet Instructions: Anemia Stand Alone Forms: Patient Portal/API Discharge Data Primary Care Provider: Kayla Steiner Attending Provider: Richard Gregorio Admit Date/Time: 05/31/25 00:14
--- NOTE | 2025-06-01 11:46 | DIET.CONS ---
Dietary Consultation Note Admission Date: 05/31/2025 00:14 Assessment: 69 y F admitted for anemia. Dietitian consulted for poor appetite. Getting ongoing chemo for lung cancer. Met with pt in room. Reports decreased appetite r/t metallic taste in mouth when eating for last 2-3 months. Only salt helps to mask the taste. Still tries to eat meals, typically able to do 60% of 3 meals. Tolerates Ensure as needed. Regular yogurt doesn't have the metallic taste. Ht: 152.4 cm Wt: 69.853 kg BMI: 30.0 UBW: Reports stable weight, 155-160 lab. Per EMR: 02/05/25 72.575 kg (160 lb) Last BM: 05/31/25 (05/31/25 00:53) MNA: 9 Rogers Score: 20 Diet: 05/31/25 Breakfast Heart Healthy Diet Diet Modifications: Nutrition Percent Meal Consumed 50% 06/01/25 09:58 Percent Meal Consumed 75% 05/31/25 13:17 Percent Meal Consumed 75% 05/31/25 09:41 Labs: RBC 3.10 X10^6/uL (4.0-5.2) L 06/01/25 05:29 Hgb 10.3 g/dL (12.0-16.0) L 06/01/25 05:29 Hct 29.8 % (36-46) L 06/01/25 05:29 Creatinine 0.87 mg/dL (0.52-1.04) 06/01/25 05:29 Lactate 1.7 mmol/L (0.7-2.1) 05/30/25 19:54 NT-Pro-B Natriuret Pep 450 pg/mL (<125) H 05/30/25 19:54 Nutrition Diagnosis: Inadequate oral intake r/t change in taste aeb reporting <75% of usual PO intake d/t metallic taste Interventions: -Discussed tips including adding citrus, plastic silverware, cold foods/drinks as needed, hydration, good oral care -Added lemon slices to lunch and dinner for trial and coordinated plastic silverware when needed with unit host -Yogurt in nurses stations as desired between meals for small, freq snacks between meals Monitoring/Evaluations: PO intakes Electronically Signed by: Mimi Dash 06/01/25 11:[address] [address]
--- NOTE | 2025-06-01 12:40 | CM.DPC ---
Addendum entered by JEAN Gabriel 06/01/25 13:11: ADD: SW received return call from Piter at [facility] and only need Resumption Orders and MD note from her admission. NOAH secure emailed Resumption Orders, H&P and d/c summary to [facility] to review. BF Original Note: DCP Discharge Home Per MD, pt likely stable for discharge home today and per RN walked pt in the [place] with FWW and pt confirms she likely does not have one at home to use and requesting one to be issued prior to d/c. NOAH placed FWW order and alerted PT and they will issue pt FWW after lunch. NOAH left msg for Piter at [facility] to determine if Resumption or new orders needed for pt d/c home today and awaiting response. Plan: patient to d/c home today via friend POV with new FWW and continued [facility]. JEAN Gabriel
--- NOTE | 2025-06-01 13:47 | PC.NURSE ---
Patient is A&OX4, she reports her eyes feel scratchy but not painful and she can tolerate the discomfort without pain medications. VSS, on RA, afebrile. She reports feeling over all improved and 02 sats are 93 on RA this a.m. She is able to walk around her room this a.m. w/o 02 and steady on her feet. Noted she was using FWW, and asked if she used at home. She stated that she would like to use one at home but thought that she had her 's. Per PT/OT a FWW is ordered and distributed to her. She is cleared for discharge by hospitalist today. Her friend arrives to transport her home via private vehicle at approximately 1 pm. She has all of her personal belongings including new FWW.
== END 2025-06-01 13:00 | disposition home or self-care (01) ==
LOC: ED 19:06 → AC 05-31 00:15
PROVIDERS: Admitting Provider Internal Medicine; Emergency Provider Family Medicine; PCP Family Medicine; Referring Provider Family Medicine; Visit Provider Internal Medicine
DX: D64.9 Anemia, unspecified (principal); C34.90 Malignant neoplasm of unspecified part of unspecified bronchus or lung; J96.10 Chronic respiratory failure, unspecified whether with hypoxia or hypercapnia; I10 Essential (primary) hypertension; E87.1 Hypo-osmolality and hyponatremia; F41.9 Anxiety disorder, unspecified; Z79.01 Long term (current) use of anticoagulants; Z99.81 Dependence on supplemental oxygen; Z87.891 Personal history of nicotine dependence; R60.0 Localized edema; H20.9 Unspecified iridocyclitis; H11.423 Conjunctival edema, bilateral
CPT/HCPCS: 36415; 36430; 71045; 74174; 80048; 80053; 82272; 83605; 83880; 84484; 85007; 85025; 85610; 86850; 86900; 86901; 93005; 96374; 97116; 97162; 97530; 99285; G0378; P9016; J2405; Q9967

== ENCOUNTER 2025-06-15 16:48 | Emergency (ER) | payer MEDICARE, OTHER, SELFPAY ==
[2025-06-15] VITALS (10 sets, daily range): BP systolic 142–157; BP diastolic 62–72; PULSE 75–91; RESP 10–22; TEMP 36.7; O2SAT 88–95; BMI 29.2
--- NOTE | 2025-06-15 17:30 | EKG_ITS ---
[address] [address] Test Date: 2025-06-15 Pat Name: Gayatri Camp Department: [facility] Room: Gender: Female Sap Bi Developer: MILENA : 1955 Requested By: Order Number: [id number] Reading MD: Quincy Dewey Measurements Intervals [place] Rate: 83 P: 73 SC: 118 QRS: 64 QRSD: 120 T: 46 QT: 346 QTc: 406 Interpretive Statements Normal sinus rhythm Right bundle branch block Electronically Signed On 06-23-2025 13:56:06 PDT by Quincy Dewey
--- NOTE | 2025-06-15 17:30 | DI.RAD.S_ITS ---
PROCEDURE: XR CHEST 1V INDICATIONS: Shortness of breath TECHNIQUE: One view of the chest was acquired. COMPARISON: [facility], CT, CT ANGIO CHEST PE PROTOCOL, 05/02/2025, 14:01. [facility], CR, XR CHEST 1V, 05/02/2025, 12:43. [facility], CR, XR CHEST 1V, 05/30/2025, 18:50. FINDINGS: Surgical changes and devices: There is a stable left-sided chest port. Lungs and pleura: An incomplete inspiratory result is noted, causing a crowded appearance to the lung markings. No focal infiltrates are seen. No pneumothorax or significant pleural effusions are seen. Mediastinum: The cardiac contours are within normal limits. The aorta demonstrates calcification and tortuosity. Bones and chest wall: No suspicious bony lesions. Age-appropriate bony degenerative changes are seen. Overlying soft tissues appear unremarkable. IMPRESSION: Low lung volumes, without an acute abnormality seen by plain film. Postoperative and degenerative changes are seen. Dictated by: Patrice Saldana M.D. on 06/15/2025 at 17:27 Approved by: Patrice Saldana M.D. on 06/15/2025 at 17:28
--- NOTE | 2025-06-15 17:58 | EKG_ITS ---
[address] [address] Test Date: 2025-06-15 Pat Name: Gayatri Camp Department: [facility] Room: Gender: Female Market Maker: MILENA : 1955 Requested By: Order Number: [id number] Reading MD: Quincy Dewey Measurements Intervals [place] Rate: 80 P: 72 NC: 118 QRS: 80 QRSD: 124 T: 64 QT: 348 QTc: 401 Interpretive Statements Normal sinus rhythm Right bundle branch block Possible Lateral infarct , age undetermined Electronically Signed On 06-23-2025 13:56:17 PDT by Quincy Dewey
--- NOTE | 2025-06-15 18:13 | ED.SOB ---
HPI - SOB/Dyspnea General Chief Complaint: Shortness of Breath/Dyspnea Stated Complaint: hypoxemia Time Seen by Provider: 06/15/25 16:55 Source: patient Mode of arrival: Ambulatory History of Present Illness HPI Narrative: 69-year-old female history of lung cancer on chemo since November chronically on 2 L old O2 nasal cannula stage IV lung cancer currently on chemo was seen by the home health nurse today noticed her O2 saturation was 83% despite on 2 L O2 nasal cannula for which the nurse increased it to 5 L and it only came up to 86%. The home health nurse spoke with pulmonology who stated that she would be between 90-92% in to come to the ER. Patient denies fever chills body aches chest pain shortness breath increased weight gain or leg pain or leg swelling. No known sick contacts at this point. She did feel a little bit more lightheaded and weaker than usual but no other significant active complaints at this time. Other than what is stated 14 point review of system is negative. Related Data Home Medications ?Medication ?Instructions ?Recorded ?Confirmed acetaminophen 500 mg tablet 500 mg PO Q6H PRN pain (scale 03/16/24 06/09/25 (Tylenol Extra Strength) score 1-3) cholecalciferol (vitamin D3) 25 25 mcg PO DAILY 03/16/24 06/09/25 mcg (1,000 unit) capsule multivitamin 1 tab PO DAILY 03/16/24 06/09/25 vit C 90 mg-D3 3.15 mcg-E 3.35 1 tab PO DAILY 03/16/24 06/09/25 [id number] 65 mg chew tablet (Airborne Vits Zinc Elderberry) apixaban 2.5 mg tablet (Eliquis) 2.5 mg PO BID 03/07/25 06/09/25 folic acid 1 mg tablet 1 mg PO DAILY 03/07/25 06/09/25 dapsone 100 mg tablet 100 mg PO DAILY taken daily 05/02/25 06/09/25 w/prednisone therapy; ordered by oncol alprazolam 0.25 mg tablet 0.125 mg PO ONCE PM PRN insomnia 05/31/25 06/09/25 mycophenolate mofetil 500 mg tablet 1,000 mg PO BID 05/31/25 06/09/25 prednisone 20 mg tablet 40 mg PO DAILY 05/31/25 06/09/25 Previous Rx's ?Medication ?Instructions ?Recorded ondansetron 4 mg disintegrating 4 mg translingual Q6H PRN nausea 07/28/24 tablet and vomiting #90 tabs amlodipine 5 mg tablet 5 mg PO DAILY #90 tabs 10/25/24 Disabled [address]ing Permit 1 ea Not Applicable DAILY #1 ea 03/07/25 buspirone 10 mg tablet 10 mg PO BID #60 tabs 05/08/25 lorazepam 0.5 mg tablet 0.5 mg PO TID PRN anxiety #30 tabs 05/23/25 prednisolone acetate 1 % eye 1 drops EYE-BOTH QID #10 mL 06/01/25 drops,suspension Allergies Allergy/AdvReac Type Severity Reaction Status Date / Time albuterol Allergy Severe Difficulty Verified 06/15/25 17:23 Breathing alprazolam AdvReac Intermediate jittery Verified 06/15/25 17:23 Sulfa (Sulfonamide AdvReac Rash Verified 06/15/25 17:23 Antibiotics) Review of Systems Review of Systems ROS Unobtainable: All systems reviewed & are unremarkable except as noted in HPI and below Patient History Medical History MARI (generalized anxiety disorder) Acute hypoxic respiratory failure Pneumonitis Pulmonary embolism Localized swelling, mass and lump, neck IFG (impaired fasting glucose) Cataracts, bilateral (~2018) Fibroids (~2008) Thyroid nodule (~2022) Hyperparathyroidism Surgical History Anesthesia S/P thyroid biopsy (~2021) History of left knee surgery (~2018) History of colonoscopy (~2013) History of lobectomy of lung (~2010) History of right knee surgery (~2005) History of carpal tunnel release (~2000) Family History Father Parkinson's disease Mother Parkinson's disease Osteoporosis Uterine cancer Grandfather Cancer Grandmother History of heart disease Grandfather History of heart disease Grandmother History of heart disease Social History household members: none alcohol intake: never tobacco type: cigarettes Exam Narrative Exam Narrative: GENERAL: [69] year old patient appears stated age. Well-developed patient, in mild distress. HEAD: Atraumatic. Normocephalic. EYES: Pupils equal round and reactive. Extraocular motions intact. No scleral icterus. No injection or drainage. ENT: Nose without bleeding, purulent drainage. Throat without erythema, tonsillar hypertrophy or exudate. Airway patent. NECK: Trachea midline. Non tender CARDIOVASCULAR: Regular rate and rhythm without murmurs, gallops, or rubs. RESPIRATORY: Decreased breath sounds with faint crackles at the bases GASTROINTESTINAL: Abdomen soft, non-tender, nondistended. EXTREMITIES: No edema or joint tenderness. BACK: Nontender without deformity or crepitance. No flank tenderness. NEURO: AOx3. SKIN: No rash or erythema of visible areas Initial Vital Signs Initial Vital Signs: Vital Signs Temperature 98.1 F 06/15/25 17:22 Pulse Rate 91 H 06/15/25 17:22 Respiratory Rate 22 06/15/25 17:22 Blood Pressure 142/62 H 06/15/25 17:22 Pulse Oximetry 88 L 06/15/25 17:22 Oxygen Delivery Method Room Air 06/15/25 17:22 Course Orders Ordered: ED Orders 06/15/25 17:30 XR chest 1V Stat EKG-12 Lead Stat RT Consult Eval and Treat STAT 06/15/25 18:14 Complete Blood Count AUTO DIFF Stat Comprehensive Metabolic Panel Stat Lactate (Lactic Acid) Stat NT-proBNP (BNP-Adult 18+) Stat Prothrombin Time INR Stat Troponin I Stat 06/15/25 18:23 CT angio chest PE protocol Stat 06/15/25 18:41 Blood Culture Stat 06/15/25 18:43 Venous Blood Gas STAT 06/15/25 18:45 Covid-19 + FLU A/B + RSV - PCR Stat 06/15/25 19:17 Venous Blood Gas Routine 06/15/25 20:20 Troponin I Stat Discontinued Medications Albuterol/Ipratropium (Albuterol/Ipratropium 3 Ml Ampul) 3 ml INH NOW ONE Stop: 06/15/25 18:24 Last Admin: 06/15/25 19:04 Dose: Not Given Documented By: NITHIN Vital Signs Vital signs: Vital Signs - 8 hr 06/15/25 17:22 06/15/25 18:25 06/15/25 18:25 Temperature 98.1 F Pulse Rate 91 H 78 Respiratory Rate 22 15 Blood Pressure 142/62 H 148/65 H Pulse Oximetry 88 L 91 93 Oxygen Delivery Method Room Air Oxygen Flow Rate 4 06/15/25 18:30 06/15/25 18:30 06/15/25 19:06 Temperature Pulse Rate 77 Respiratory Rate 13 Blood Pressure 157/72 H Pulse Oximetry 91 95 Oxygen Delivery Method Room Air Oxygen Flow Rate 06/15/25 19:13 06/15/25 19:30 06/15/25 20:00 Temperature Pulse Rate 80 77 81 Respiratory Rate 18 22 Blood Pressure Pulse Oximetry 88 L 92 90 L Oxygen Delivery Method Nasal Cannula Oxygen Flow Rate 2 06/15/25 20:30 Temperature Pulse Rate 76 Respiratory Rate 21 Blood Pressure Pulse Oximetry 90 L Oxygen Delivery Method Oxygen Flow Rate MDM - SOB/Dyspnea Lab Data 06/15/25 18:14 06/15/25 18:14 Labs: Lab Results 06/15/25 06/15/25 06/15/25 Range/Units 18:14 18:45 19:17 WBC 10.6 (4.5-11.0) X10^3/uL RBC 2.76 L (4.0-5.2) X10^6/uL Hgb 9.3 L (12.0-16.0) g/dL Hct 27.0 L (36-46) % MCV 98.0 (80-100) fL MCH 33.7 (26-34) PG MCHC 34.4 (30-36) % RDW 23.9 H (11.6-14.8) % Plt Count 235 (150-400) X10^3/uL Neut % (Auto) 85.7 H (50-75) % Lymph % (Auto) 8.9 L (25-40) % Pike % (Auto) 5.1 (3-14) % Eos % (Auto) 0.0 L (2-4) % Baso % (Auto) 0.3 (0-2) % Neut # (Auto) 9100 H (8916-9989) /uL Lymph # (Auto) 900 L (9546-5423) /uL Pike # (Auto) 500 (0-900) /uL Eos # (Auto) 0 (0-450) /uL Baso # (Auto) 0 (0-100) /uL Platelet Estimate Adequate on smear RBC Morphology See below Anisocytosis 2+ H Microcytosis 1+ H Macrocytosis 2+ H Spherocytes 1+ H Schistocytes 2+ H PT 12.6 H (9.4-12.5) SECONDS INR 1.1 (0.9-1.3) VBG pH 7.44 H (7.33-7.43) VBG pCO2 41.1 L (45-50) mmHg VBG pO2 28 L (35-45) mmHg VBG HCO3 28 (24-28) mmol/L VBG Total CO2 26 (24-29) mmol/L VBG O2 Saturation 55 L (70-75) % VBG Base Excess 3.2 (0-4) mmol/L FiO2 % 36.0 % % Sodium 129 L (137-145) mmol/L Potassium 4.4 (3.4-5.1) mmol/L Chloride 96 L (98-107) mmol/L Carbon Dioxide 25 (22-32) mmol/L BUN 16 (7-17) mg/dL Creatinine 1.20 H (0.52-1.04) mg/dL Estimated GFR 49 L (>60) mL/min BUN/Creatinine Ratio 13.3 (6-22) Glucose 114 H (70-99) mg/dL Lactate 1.5 (0.7-2.1) mmol/L Calcium 10.1 (8.4-10.2) mg/dL Total Bilirubin 1.6 H (0.2-1.3) mg/dL AST 98 H (14-36) IU/L ALT 186 H (<35) IU/L Alkaline Phosphatase 76 (38-126) U/L Troponin I 0.016 (0.01-0.034) ng/mL NT-Pro-B Natriuret Pep 304 H (<125) pg/mL Total Protein 6.8 (6.3-8.2) g/dL Albumin 4.4 (3.5-5.0) g/dL Globulin 2.4 (1.7-4.1) g/dL Albumin/Globulin Ratio 1.8 (1.0-2.8) SARS-CoV-2 (PCR) Negative (Negative) Influenza A (RT-PCR) Flu a negative (NEGATIVE) Influenza B (RT-PCR) Flu b negative (NEGATIVE) RSV (PCR) Negative (Negative) 07/31/25 Range/Units 20:20 WBC (4.5-11.0) X10^3/uL RBC (4.0-5.2) X10^6/uL Hgb (12.0-16.0) g/dL Hct (36-46) % MCV (80-100) fL MCH (26-34) PG MCHC (30-36) % RDW (11.6-14.8) % Plt Count (150-400) X10^3/uL Neut % (Auto) (50-75) % Lymph % (Auto) (25-40) % Pike % (Auto) (3-14) % Eos % (Auto) (2-4) % Baso % (Auto) (0-2) % Neut # (Auto) (4250-9233) /uL Lymph # (Auto) (9955-4477) /uL Pike # (Auto) (0-900) /uL Eos # (Auto) (0-450) /uL Baso # (Auto) (0-100) /uL Platelet Estimate RBC Morphology Anisocytosis Microcytosis Macrocytosis Spherocytes Schistocytes PT (9.4-12.5) SECONDS INR (0.9-1.3) VBG pH (7.33-7.43) VBG pCO2 (45-50) mmHg VBG pO2 (35-45) mmHg VBG HCO3 (24-28) mmol/L VBG Total CO2 (24-29) mmol/L VBG O2 Saturation (70-75) % VBG Base Excess (0-4) mmol/L FiO2 % % Sodium (137-145) mmol/L Potassium (3.4-5.1) mmol/L Chloride (98-107) mmol/L Carbon Dioxide (22-32) mmol/L BUN (7-17) mg/dL Creatinine (0.52-1.04) mg/dL Estimated GFR (>60) mL/min BUN/Creatinine Ratio (6-22) Glucose (70-99) mg/dL Lactate (0.7-2.1) mmol/L Calcium (8.4-10.2) mg/dL Total Bilirubin (0.2-1.3) mg/dL AST (14-36) IU/L ALT (<35) IU/L Alkaline Phosphatase (38-126) U/L Troponin I 0.017 (0.01-0.034) ng/mL NT-Pro-B Natriuret Pep (<125) pg/mL Total Protein (6.3-8.2) g/dL Albumin (3.5-5.0) g/dL Globulin (1.7-4.1) g/dL Albumin/Globulin Ratio (1.0-2.8) SARS-CoV-2 (PCR) (Negative) Influenza A (RT-PCR) (NEGATIVE) Influenza B (RT-PCR) (NEGATIVE) RSV (PCR) (Negative) Imaging Data Chest x-ray: Radiologist's Impression: [address] [address] XRay Report Signed Patient: Gayatri Fabian MR#: [id number] : 1955 Acct:[id number] Age/Sex: 69 / F Date of Service: 06/15/25 Loc: ED Accession Number: [id number] Procedure: XR chest 1V Ordering Provider: Arash Mooney MD PROCEDURE: XR CHEST 1V INDICATIONS: Shortness of breath TECHNIQUE: One view of the chest was acquired. COMPARISON: [facility], CT, CT ANGIO CHEST PE PROTOCOL, 05/02/2025, 14:01. [facility], CR, XR CHEST 1V, 05/02/2025, 12:43. [facility], CR, XR CHEST 1V, 05/30/2025, 18:50. FINDINGS: Surgical changes and devices: There is a stable left-sided chest port. Lungs and pleura: An incomplete inspiratory result is noted, causing a crowded appearance to the lung markings. No focal infiltrates are seen. No pneumothorax or significant pleural effusions are seen. Mediastinum: The cardiac contours are within normal limits. The aorta demonstrates calcification and tortuosity. Bones and chest wall: No suspicious bony lesions. Age-appropriate bony degenerative changes are seen. Overlying soft tissues appear unremarkable. IMPRESSION: Low lung volumes, without an acute abnormality seen by plain film. Postoperative and degenerative changes are seen. CT scan - chest: Radiologist's Impression: [address] [address] [address] Scan Report Signed Patient: Gayatri Fabian MR#: [id number] : 1955 Acct:[id number] Age/Sex: 69 / F Date of Service: 06/15/25 Loc: ED Accession Number: [id number] Procedure: CT angio chest PE protocol Ordering Provider: Piter Marie D.O. PROCEDURE: CT ANGIO CHEST PE PROTOCOL INDICATIONS: lung ca 02 sat 80s TECHNIQUE: After the administration of intravenous contrast, 2 mm thick sections acquired from the pulmonary apices to the posterior costophrenic angles. 3-dimensional maximum intensity projection (MIP) coronal and sagittal reformats were then acquired through the thorax. For radiation dose reduction, the following was used: automated exposure control, adjustment of mA and/or kV according to patient size. COMPARISON: [facility], CT, CT ANGIO CHEST PE PROTOCOL, 02/05/2025, 21:28. [facility], CT, CT ANGIO CHEST PE PROTOCOL, 03/23/2025, 20:03. [facility], CT, CT CHEST ABDOMEN PELVIS WITH CONTRAST, 05/26/2025, 14:34. [facility], CT, CT ANGIO CHEST PE PROTOCOL, 05/02/2025, 14:01. FINDINGS: Image quality: Diagnostic. Pulmonary arteries: Pulmonary arteries are normal in size, and demonstrate no intraluminal filling defects to suggest central pulmonary embolism. Lower Neck: No enlarged lymph nodes. Thyroid: No thyroid nodules which require sonographic follow up, per consensus guidelines. Axillae: No enlarged lymph nodes. Chest Wall: Left-sided port with the catheter tip at the upper 3rd of the SVC. Bones: No suspicious osseous lesion. Lungs and Pleura: No pneumothorax or pleural effusions. Central airways are clear. No acute airspace opacity. Right lower lobectomy. Pulmonary lesions. For example -Right apex 2.7 cm, (5/40), unchanged. -Left upper lobe 1.7 cm, (5/56), unchanged. -Left lower lobe 1.3 cm, (5/144), unchanged. Heart: Heart size is normal. No pericardial effusion. Thoracic Vessels: No aortic aneurysm. Mediastinum and Shonna: No enlarged lymph nodes. Esophagus: No wall thickening. No hiatal hernia. Upper Abdomen: Visualized upper abdomen solid organs and bowel loops appear normal. IMPRESSION: 1. No pulmonary embolism. 2. No acute airspace opacity. 3. Similar pulmonary lesions. Dictated by: Jordon Jefferson M.D. on 06/15/2025 at 19:25 Approved by: Jordon Jefferson M.D. on 06/15/2025 at 19:36 ECG Data Interpretation: NSR RBBB HR 83 [place] 118 QRS [address]-t wave change Unchanged from 05/30/25 MDM Narrative Medical decision making narrative: Vital signs, nurse triage note, medication list, previous ER visits, and all imaging studies reviewed. Chest x-ray showed low lung volumes without any acute abnormality. Postoperative and degenerative changes are seen. CTA chest showed no pulmonary embolism, no acute airspace opacity, similar pulmonary lesion. Hemoglobin 9.3 VBG shows pH of 7.44 pCO2 41.1 PO2 28 bicarb 28 O2 saturation 55. Sodium 129 potassium 4.4 chloride 96 creatinine 1.20 T bili 1.6 AST 98 ALT 186 troponin 0.016 and 0.017 BNP 304. Patient remained 90-91% on 2 L nasal cannula here. Differential diagnosis includes STEMI NSTEMI unstable angina PE pneumonia sepsis UTI viral. Discharge Plan Departure Patient Disposition: Home Clinical Impression: Breath shortness Instructions: DI for Shortness of Breath Activity Restrictions/Additional Instructions: Return with new or worsening symptoms. Follow up PCP next week for recheck. Prescriptions: No Action amlodipine 5 mg tablet 5 mg PO DAILY Qty: 90 3RF dapsone 100 mg tablet 100 mg PO DAILY buspirone 10 mg tablet 10 mg PO BID Qty: 60 5RF lorazepam 0.5 mg tablet 0.5 mg PO TID PRN (Reason: anxiety) Qty: 30 3RF alprazolam 0.25 mg tablet 0.125 mg PO ONCE PM PRN (Reason: insomnia) prednisone 20 mg tablet 40 mg PO DAILY mycophenolate mofetil 500 mg tablet 1,000 mg PO BID prednisolone acetate 1 % Drops,Suspension 1 drops EYE-BOTH QID Qty: 10 1RF multivitamin Tablet 1 tab PO DAILY cholecalciferol (vitamin D3) 25 mcg (1,000 unit) capsule 25 mcg PO DAILY Airborne Vits Zinc Elderberry 90 mg-3.15 mcg- 3.35 mg-1 mg tablet,chewable 1 tab PO DAILY acetaminophen [Tylenol Extra Strength] 500 mg tablet 500 mg PO Q6H PRN (Reason: pain (scale score 1-3)) ondansetron 4 mg tablet,disintegrating 4 mg translingual Q6H PRN (Reason: nausea and vomiting) Qty: 90 0RF Eliquis 2.5 mg tablet 2.5 mg PO BID folic acid 1 mg tablet 1 mg PO DAILY Disabled Parking Permit 1 ea Not Applicable DAILY Qty: 1 0RF Referrals: Kayla Steiner DO [Primary Care Provider, Family Practice] Stand Alone Forms: Patient Portal/API
--- NOTE | 2025-06-15 18:23 | DI.CT.S_ITS ---
PROCEDURE: CT ANGIO CHEST PE PROTOCOL INDICATIONS: lung ca 02 sat 80s TECHNIQUE: After the administration of intravenous contrast, 2 mm thick sections acquired from the pulmonary apices to the posterior costophrenic angles. 3-dimensional maximum intensity projection (MIP) coronal and sagittal reformats were then acquired through the thorax. For radiation dose reduction, the following was used: automated exposure control, adjustment of mA and/or kV according to patient size. COMPARISON: [facility], CT, CT ANGIO CHEST PE PROTOCOL, 02/05/2025, 21:28. [facility], CT, CT ANGIO CHEST PE PROTOCOL, 03/23/2025, 20:03. [facility], CT, CT CHEST ABDOMEN PELVIS WITH CONTRAST, 05/26/2025, 14:34. [facility], CT, CT ANGIO CHEST PE PROTOCOL, 05/02/2025, 14:01. FINDINGS: Image quality: Diagnostic. Pulmonary arteries: Pulmonary arteries are normal in size, and demonstrate no intraluminal filling defects to suggest central pulmonary embolism. Lower Neck: No enlarged lymph nodes. Thyroid: No thyroid nodules which require sonographic follow up, per consensus guidelines. Axillae: No enlarged lymph nodes. Chest Wall: Left-sided port with the catheter tip at the upper 3rd of the SVC. Bones: No suspicious osseous lesion. Lungs and Pleura: No pneumothorax or pleural effusions. Central airways are clear. No acute airspace opacity. Right lower lobectomy. Pulmonary lesions. For example -Right apex 2.7 cm, (5/40), unchanged. -Left upper lobe 1.7 cm, (5/56), unchanged. -Left lower lobe 1.3 cm, (5/144), unchanged. Heart: Heart size is normal. No pericardial effusion. Thoracic Vessels: No aortic aneurysm. Mediastinum and Shonna: No enlarged lymph nodes. Esophagus: No wall thickening. No hiatal hernia. Upper Abdomen: Visualized upper abdomen solid organs and bowel loops appear normal. IMPRESSION: 1. No pulmonary embolism. 2. No acute airspace opacity. 3. Similar pulmonary lesions. Dictated by: Jordon Jefferson M.D. on 06/15/2025 at 19:25 Approved by: Jordon Jefferson M.D. on 06/15/2025 at 19:36
[2025-06-15 18:34] LABS: Add Manual Diff / Slide Review NO; Hematocrit 27.0 % (36-46); Hemoglobin 9.3 g/dL (12.0-16.0); Lymphocytes Absolute Auto 900 /uL (1100-4500); Mean Corpuscular HGB Conc 34.4 % (30-36); Mean Corpuscular Hemoglobin 33.7 PG (26-34); Mean Corpuscular Volume 98.0 fL (80-100); Platelet Count 235 X10^3/uL (150-400)
[2025-06-15 18:42] LABS: INR 1.1 (0.9-1.3); Prothrombin Time 12.6 SECONDS (9.4-12.5)
[2025-06-15 18:45] LABS: Lactate (Lactic Acid) 1.5 mmol/L (0.7-2.1)
[2025-06-15 18:46] LABS: Alanine Aminotransferase 186 IU/L (<35); Albumin 4.4 g/dL (3.5-5.0); Albumin Globulin Ratio 1.8 (1.0-2.8); Alkaline Phosphatase 76 U/L (38-126); Blood Urea Nitrogen 16 mg/dL (7-17); Calcium 10.1 mg/dL (8.4-10.2); Carbon Dioxide 25 mmol/L (22-32); Chloride 96 mmol/L (98-107); Estimated Glomerular Filt Rate 49 mL/min (>60); Globulin 2.4 g/dL (1.7-4.1); Glucose 114 mg/dL (70-99); HEMOLYSIS < 15 (0-50); Potassium 4.4 mmol/L (3.4-5.1); Sodium 129 mmol/L (137-145); Total Protein 6.8 g/dL (6.3-8.2)
[2025-06-15 18:58] LABS: NT-proBNP (BNP-Adult 18+) 304 pg/mL (<125); Troponin I 0.016 ng/mL (0.01-0.034)
--- NOTE | 2025-06-15 19:07 | RT ---
PT IS REFUSING ALBUTEROL AND DUONEB W/ ALBUTEROL. PT STATES SHE HAS AN ALLERGY TO ALBUTEROL. RN UPDATED.
[2025-06-15 19:23] LABS: Base Excess VBG 3.2 mmol/L (0-4); HCO3 VBG 28 mmol/L (24-28); Oxygen Saturation VBG 55 % (70-75); PCO2 VBG 41.1 mmHg (45-50); PO2 VBG 28 mmHg (35-45); Total CO2 VBG 26 mmol/L (24-29); pH VBG 7.44 (7.33-7.43)
[2025-06-15 19:32] LABS: Influenza A - CEPHEID Flu A NEGATIVE (NEGATIVE); Influenza B - CEPHEID Flu B NEGATIVE (NEGATIVE)
[2025-06-15 19:39] LABS: Macrocytosis 2+; Schistocytes 2+
[2025-06-15 19:40] LABS: Microcytosis 1+; Spherocytes 1+
[2025-06-15 19:46] LABS: Anisocytosis 2+
[2025-06-15 19:49] LABS: COVID-19 CEPHEID 4-PLEX PCR Negative (Negative)
--- NOTE | 2025-06-15 20:15 | PC.NURSE ---
pt states she is feeling better and is ready to go home if the repeat lab work comes back neg.
[2025-06-15 20:55] LABS: Troponin I 0.017 ng/mL (0.01-0.034)
== END 2025-06-15 21:51 | disposition home or self-care (01) ==
PROVIDERS: Emergency Medicine; Emergency Provider Family Medicine; PCP Family Medicine
DX: R06.02 Shortness of breath (principal)
CPT/HCPCS: 36415; 71045; 71275; 80053; 82805; 83605; 83880; 84484; 85025; 85610; 87040; 87637; 93005; 99284; Q9967

== ENCOUNTER → 2025-07-25 11:26 | Outpatient (CLI) | payer MEDICARE, OTHER, SELFPAY ==
[2025-06-26 18:22] VITALS: BMI 27.4
[2025-07-25 16:05] LABS: Influenza A - CEPHEID Flu A NEGATIVE (NEGATIVE); Influenza B - CEPHEID Flu B NEGATIVE (NEGATIVE)
[2025-07-25 16:06] LABS: COVID-19 CEPHEID 4-PLEX PCR Negative (Negative)
== END ==
PROVIDERS: PCP Family Medicine; Visit Provider Family Medicine
DX: R74.8 Abnormal levels of other serum enzymes (principal); C34.31 Malignant neoplasm of lower lobe, right bronchus or lung; R06.02 Shortness of breath
CPT/HCPCS: 87070; 87637